=== PATIENT | male | born 1955 | race Caucasian/White ===

== ENCOUNTER 2017-09-27 10:05 | Observation (INO) | payer OTHER ==
[~2017-09-27] VITALS: Ht 182.9 cm; Wt 100.7 kg
[2017-09-27] VITALS (8 sets, daily range): BP systolic 110–133; BP diastolic 63–74
--- NOTE | ~2017-09-27 | H ---
[address] [address] HISTORY AND PHYSICAL Name: SOLO HOYT Room: [address] Roberto Simon#: [id number] Admission: 09/27/17 Attend Phys: Talib lBackwell MD, Discharge: 09/28/17 Date of : 51 Report #: [id number] THIS REPORT FOR: //name// Please refer to the History and Physical performed in the physician's office. By: [id number] Records Staff KATHIE /BLAIR
[~2017-09-27 10:05] MED LIST: ASPIR 8181 MG PO; ATORVASTATIN CA40 MG PO; EFFIENT10 MG PO; LISINOPRIL2.5 MG PO; LOPRESSOR25 PO; NICOTINE TRANSD14 M1 TRANSDERM; NICOTINE TRANSD21 M1; NITROGLYCERIN0.4 MG SUBLING; ZOCOR20 MG PO
[2017-09-27 11:31] LABS: HEMATOCRIT 42.5 % (42.0-52.0); HEMOGLOBIN 14.2 gm/dL (14.0-18.0); MCH 29.7 pg (26.0-34.0); MCHC 33.4 g/dL (28.0-37.0); MCV 88.9 fL (80.0-100.0); MPV 7.8 fl. (7.2-11.1); RBC 4.78 mil/uL (4.50-6.00); RDW-CV 13.7 % (10.5-14.5); WBC 7.7 thou/uL (4.0-11.0)
[2017-09-27 11:41] LABS: ANION GAP 8 mmol/L (7-16); BUN 22 mg/dL (7-18); CALCIUM 8.7 mg/dL (8.5-10.1); CHLORIDE 107 mmol/L (98-107); CO2 26 mmol/L (21-32); GLUCOSE 96 mg/dL (70-99); POTASSIUM 4.7 mmol/L (3.5-5.1); SODIUM 141 mmol/L (136-145)
[2017-09-27 11:42] LABS: APTT 26.3 Seconds (25.0-31.3); PROTIME 10.1 Seconds (9.20-11.50)
[2017-09-27 11:45] LABS: ALBUMIN 3.7 g/dL (3.4-5.0); ALKALINE PHOSPHATASE 85 U/L (46-116); CHOLESTEROL 128 mg/dL (<200); HDL CHOLESTEROL 44 mg/dL (>40); LDL CHOLESTEROL 58 mg/dL (<100); SGOT 28 U/L (15-37); SGPT 65 U/L (30-65); TC:HDL 2.9 Ratio (Not establshd); TOTAL BILIRUBIN 0.4 mg/dL (<0.1-1.0); TOTAL PROTEIN 7.5 g/dL (6.4-8.2); TRIGLYCERIDE 133 mg/dL (<150); VLDL 27 mg/dL (<40)
[2017-09-27 11:46] LABS: SERUM ASSESSMENT Clear
--- NOTE | 2017-09-27 17:18 | EKG ---
[place] [address] ELECTROCARDIOGRAM REPORT Name: SOLO HOYT Room: [facility]#: [id number] Admission: 09/27/17 Attend Phys: Talib Blackwell MD, Discharge: Date of : 51 Report #: [id number] THIS REPORT FOR: //name// [facility] Test Date: 2017-09-27 Test Time: 11:33:08 Pat Name: SOLO HOYT Department: Room: Gender: M Gunner'S Mate M: : 1955 Requested By: Talib Blackwell Order Number: [id number] Reading MD: Miguelangel Hendricks Measurements Intervals [place] Rate: 53 P: 62 IA: 167 QRS: 53 QRSD: 89 T: 48 QT: 416 QTc: 391 Interpretive Statements Sinus rhythm Abnormal R-wave progression, early transition Minimal ST elevation, anterior leads Baseline wander in lead(s) V3,V4,V5 Compared to ECG 03/24/2016 08:55:23 ST (T wave) deviation now present Electronically Signed On 09-27-2017 17:18:38 YOUTH CARE SPECIALIST by Miguelangel Hendricks [email or web address] <ELECTRONICALLY SIGNED> By: Miguelangel Hendricks MD, FACC 09/27/17 1718 1133 1133 Miguelangel Hendricks MD, FAC /EPI
--- NOTE | 2017-09-27 18:00 | NUR ---
post heart cath report given patient to via bed at bedside r groin site d/i no hematoma patient wuithout c/o pain no void yet patient instructed on laying flat until 2244, need for void in urinal, and use of call light
[2017-09-27] MEDS ORDERED: FISH OIL 1,001000 M2 PO (19:59)
[2017-09-27] MEDS ORDERED: [UNRECOGNIZED DRUG - OTHER] PO (20:01)
[2017-09-28] VITALS: BP 141/70
[2017-09-28 04:00] VITALS: BP 146/73
--- NOTE | 2017-09-28 05:11 | NUR ---
PT A&O X4 CALM COOPERITVE. FLUIDS. RA. 1ST BBB ON THE MONTIOR. RIGHT GROIN SITE INTACT NO HEMATOMA OR BLEEDING NOTED. PT STAND BY ASSIST. VITALS WNL. FALL PRECAUTIONS IN PLACE. HOURLY ROUNDING FOR SAFETY.
[2017-09-28 05:36] LABS: HEMATOCRIT 38.8 % (42.0-52.0); HEMOGLOBIN 13.1 gm/dL (14.0-18.0); MCH 30.1 pg (26.0-34.0); MCHC 33.9 g/dL (28.0-37.0); MCV 88.8 fL (80.0-100.0); MPV 7.8 fl. (7.2-11.1); RBC 4.36 mil/uL (4.50-6.00); RDW-CV 13.9 % (10.5-14.5); WBC 8.7 thou/uL (4.0-11.0)
[2017-09-28 05:58] LABS: ANION GAP 6 mmol/L (7-16); BUN 20 mg/dL (7-18); CALCIUM 7.8 mg/dL (8.5-10.1); CHLORIDE 108 mmol/L (98-107); CO2 25 mmol/L (21-32); GLUCOSE 117 mg/dL (70-99); POTASSIUM 4.3 mmol/L (3.5-5.1); SODIUM 139 mmol/L (136-145); TROPONIN-I LEVEL <0.06 ng/mL (<0.06)
--- NOTE | 2017-09-28 07:20 | NUR ---
CHANGE OF SHIFT, BEDSIDE REPORT GIVEN ASSUMED PATIENT CARE PATIENT SEEN AT BEDSIDE, ASLEEP
[2017-09-28 08:00] VITALS: BP 121/63
[2017-09-28 09:45] VITALS: BP 121/63
--- NOTE | 2017-09-28 10:50 | D ---
[address] [address] DISCHARGE SUMMARY Name: EVELINASOLO LEE Room: [address] IN M.R.#: [id number] Admission: 09/27/17 Attend Phys: Talib Blackwell MD, Discharge: Date of : 51 Report #: [id number] THIS REPORT FOR: //name// CC: Talib Salazar Swetha DATE OF SERVICE: 09/28/2017 FINAL DISCHARGE DIAGNOSES: 1. Unstable angina. 2. Coronary artery disease, status post prior stenting of the ramus intermedius and more recent percutaneous coronary intervention to the mid left anterior descending on 09/27/2017. 3. Hypertension. 4. Hyperlipoproteinemia. 5. Exogenous obesity. 6. Dyspnea on exertion. PROCEDURES: On 09/27/2017 - left heart catheterization, left ventriculography, selective coronary arteriography and percutaneous coronary intervention with deployment of drug-eluting stent at the site of 80% focal mid LAD stenosis with angioplasty within a previously stented proximal LAD site. HOSPITAL COURSE: The patient is a very pleasant 62-year-old male with a history of known coronary artery disease, status post stenting of the ramus intermedius in 12/2015. He underwent percutaneous coronary intervention to the LAD and first diagonal in 08/2016 at the [facility]. He presented with marked dyspnea on exertion, typical with his prior ischemic syndrome. He underwent recatheterization in this context on 09/27/2017. That study revealed 80% focal mid LAD stenosis at the end of the previously deployed stent, with approximately 60% to 70% proximal in-stent restenosis of the LAD. I deployed one 2.75 x 12 mm Xience Alpine drug-eluting stent in the mid LAD at the site of focal-edged stenosis and post-dilated that with a 3.02, 22 atmospheres with 10% residual narrowing. I dilated the suboptimally expanded proximal LAD stent with a 3.0 x 12 mm NC Trek inflated to 22 atmospheres with 10% to 20% residual narrowing and FELIPE 3 flow of the distal vessel. The patient did well post-procedurally and there was good hemostasis at the femoral site of catheterization. LABORATORY DATA: On 09/28/2017 revealed sodium of 139, potassium 4.3, BUN 20 and creatinine 1.0. Hemoglobin 13.1, white blood cell count 8700 with 235,000 platelets. The patient ambulated in the hallways without difficulty, with good hemostasis at the right [place] [address] DISCHARGE SUMMARY Name: SOLO HOYT PORTIA Room: [address]#: [id number] Admission: 09/27/17 Attend Phys: Talib Blackwell MD, Discharge: Date of : 51 Report #: [id number] DISCHARGE MEDICATIONS: He was discharged to home on 09/28/2017 on the following medications: Aspirin 81 mg daily, atorvastatin 20 mg at bedtime, fish oil 1000 mg daily, lisinopril 2.5 mg daily, metoprolol tartrate 12.5 mg b.i.d., nicotine patch 14 mg 1 daily, prasugrel or Effient 10 mg daily with additional 30 mg given periprocedurally and Ranexa 500 mg b.i.d. as well as p.r.n. sublingual nitroglycerin if needed. The patient is scheduled to return to see me on 10/29/2017 at 1440 at the [facility] office. <ELECTRONICALLY SIGNED> By: Talib Blackwell MD, FACC 09/28/17 1050 0946 1011John Annelise Blackwell MD, FACC /nt
--- NOTE | 2017-09-28 11:30 | NUR ---
patient dcd to home all dc instructions given and acknowledged and signed copies given iv and heart monitor removed personal belongings returned patient escorted out ambulatory to [facility]
--- NOTE | 2017-09-28 20:18 | EKG ---
[place] [address] ELECTROCARDIOGRAM REPORT Name: HOYTSOLO Room: [address] IN M.R.#: [id number] Admission: 09/27/17 Attend Phys: Talib Blackwell MD, Discharge: 09/28/17 Date of : 51 Report #: [id number] THIS REPORT FOR: //name// [facility] Test Date: 2017-09-28 Test Time: 08:34:52 Pat Name: SOLO HOYT Department: Room: [facility] Gender: M Ict Business Development Manager: 25 : 1955 Requested By: Talib Blackwell Order Number: [id number] Reading MD: Miguelangel Hendricks Measurements Intervals [place] Rate: 49 P: 57 NE: 171 QRS: 60 QRSD: 88 T: 52 QT: 451 QTc: 408 Interpretive Statements Sinus bradycardia Minimal ST elevation, anterior leads Compared to ECG 09/27/2017 11:33:08 Sinus rhythm no longer present ST (T wave) deviation still present Electronically Signed On 09-28-2017 20:17:57 MONOMER PURIFICATION OPERATOR by Miguelangel Hendricks [email or web address] <ELECTRONICALLY SIGNED> By: Miguelangel Hendricks MD, [facility] 09/28/172016 Miguelangel Hendricks MD, [facility] /EPI
--- NOTE | 2017-11-09 14:57 | CARD ---
[address] [address] CARDIAC CATH REPORT Name: SOLO HOYT Room: [address] Roberto Simon#: [id number] Admission: 09/27/17 Attend Phys: Talib Blackwell MD, Discharge: 09/28/17 Date of : 51 Report #: [id number] THIS REPORT FOR: //name// ADDENDUM APPROVED REPORT Study performed: 09/27/2017 15:48:46 Patient Details Patient Status: Out-Patient Room #: The patient is a 62 year-old male Event Personnel Talib Blackwell Special Makeup Fx Artist Instructor, Corrine Edwards RN Master Hearth Technician, Diana Thomas RTR ScrubSai Anthony ARRT (R) Monitor, William Mena Monitor Procedures Performed Art Access - R femoral artery* JEANIE Place w/wo Plasty Single LAD 318132 Left Heart Cath w/LT VGram [id number] LHCLV , Right trans femoral approach Indication Unstable angina Risk Factors Hypercholesterolemia, Hypertension, Tobacco History () Previous Procedures/Diagnoses Previous PCI Admission/Lab Medications/Medications given during procedure Angiomax bolus and infusion Procedure Narrative The patient was brought electively to the Cardiac Catheterization Laboratory and was prepped and draped in a sterile manner. The right femoral was infiltrated with 2% Lidocaine subcutaneous anesthesia. A [place] 6 FR sheath was inserted into the right femoral artery. Coronary angiography was performed using coronary diagnostic catheters. The right coronary system was accessed and visualized with a Diagnostic catheter. The left coronary system was accessed and visualized with a Diagnostic catheter. The left ventricle was accessed and visualized with a Diagnostic catheter. Left ventricular/Aortic Valve gradient assessed via catheter pullback. Left ventriculogram was performed in RAMIREZ projection. [place] [address] CARDIAC CATH REPORT Name: EVELINASOLO LEE Room: [address]#: [id number] Admission: 09/27/17 Attend Phys: Talib Blackwell MD, Discharge: 09/28/17 Date of : 51 Report #: [id number] femoral angiogram was performed . Closure device was deployed with a Fr Angioseal STS 6Fr. The patient tolerated the procedure well and there were no complications associated with the procedure. There was no hematoma. Intraoperative Conscious Sedation Sedation start time: 1617 Case end Time: 1728 Fentanyl 25 mcg Versed 1 mg Dose: 1763 mGy Contrast Type and Amount: Visipaque 315 ml Diagnostic Cath Left Main 0% narrowing LAD 40-50% proximal LAD stenosis with 80% focal mid LAD stenosis at the end of the previously deployed stent. There is 40% narrowing at the end of a previously deployed stent in the first diagonal branch of the LAD Circumflex Nondominant vessel with 50% proximal narrowing Right Coronary 0% narrowing Ramus Widely patent proximal ramus intermedius stent with 0% narrowing Left Ventriculography The left ventricle is normal in size with normal contractility. The left ventricular ejection fraction is estimated to be 60%. Left ventricular wall motion abnormalities are not present. There is no mitral insufficiency. Hemodynamics The aortic pressure is 130/62 mmHg with a mean of 83 mmHg. The left ventricular pressure is 133/4 mmHg with a mean of mmHg. The left ventricular end diastolic pressure is 19 mmHg. PCI Technique Lesion Anticoagulation was achieved with Angiomax. Patient was preloaded with Angiomax IV 15 ml. Percutaneous coronary intervention was performed on the mid left anterior descending artery segment. The lesion stenosis prior to intervention was 80% with FELIPE 3 flow. A 6F XB LAD 3.5 Guide Catheter was used to engage the ostium. A IG: BMW 190cm Interventional Guidewire was used to cross the lesion. BALLOON DILATION A Balloon catheter Trek RX 2.5 X 12 was inserted and inflated up to 16.00atm for 18seconds. Additional Inflation: 16.00atm [place] [address] CARDIAC CATH REPORT Name: SOLO HOYT PORTIA Room: [address] [place]#: [id number] Admission: 09/27/17 Attend Phys: Talib Blackwell MD, Discharge: 09/28/17 Date of : 51 Report #: [id number] 14seconds. STENT DEPLOYMENT A drug-eluting stent Xience Alpine RX 2.75X12 was inserted and inflated up to 8.00atm for 10seconds. Additional Inflation: 14.00atm for 13seconds. Additional Inflation: 16.00atm for 11seconds. POST STENT DEPLOYMENT BALLOON DILATION A Balloon catheter NC Trek RX 2.75 X 8 was inserted and inflated up to 20.00atm for 12seconds. Additional Inflation: 22.00atm for 12seconds. NC Trek RX 3.0x12 inflated up to 18 monica for 16 seconds. And then inflated up to 22 monica for 11 seconds. Final angiography reveals 10 % stenosis with FELIPE 3 flow. Conclusion #1 significant coronary artery characterized by the following: A 40-50% proximal in-stent restenosis with 80% focal stenosis of the mid LAD at the end of the previously deployed stent; there was 40% narrowing of the first diagonal the end of the previously deployed stent, B 50% proximal circumflex was narrowing, this being a nondominant vessel, C dominant right coronary artery with 0% narrowing, D ramus intermedius with widely patent proximal stent #2 normal left ventricular size and systolic function, estimated ejection fraction being 60%, #3 normal left-sided hemodynamics study, #4 successful percutaneous coronary intervention with deployment of drug-eluting stent at site of 80% focal mid LAD stenosis with 10% residual narrowing probably stent deployment and FELIPE-3 flow to the distal vessel. Recommendations Aggressive Medical Therapy Weight Loss Reduction Program [place] [address] CARDIAC CATH REPORT Name: SOLO HOYT Room: [address] MAYNOR Simon#: [id number] Admission: 09/27/17 Attend Phys: Talib Blackwell MD, Discharge: 09/28/17 Date of : 51 Report #: [id number] Aspirin (any) Prasugrel <ELECTRONICALLY SIGNED> By: Talib Blackwell MD, FACC 11/09/17 1457 1457 1457Jojorge alberto Blackwell MD, FACC /INF
== END 2017-09-28 11:30 | disposition home or self-care (01) ==
LOC: M.CL 10:05 → M.TBA-ER 17:41 → M.2W 17:41
PROVIDERS: ADMIT Internal Medicine
DX: I25.110 Atherosclerotic heart disease of native coronary artery with unstable angina pectoris (principal); I10 Essential (primary) hypertension; E78.5 Hyperlipidemia, unspecified; E66.09 Other obesity due to excess calories; Z68.30 Body mass index [BMI] 30.0-30.9, adult; E78.00 Pure hypercholesterolemia, unspecified; Z87.891 Personal history of nicotine dependence

== ENCOUNTER → 2017-11-28 | Outpatient (CLI) | payer OTHER ==
[~2017-11-28] MED LIST changes: +FISH OIL 1,001000 M2 PO; +[UNRECOGNIZED DRUG - OTHER] PO
== END ==
LOC: M.RAD 11:16
DX: J98.4 Other disorders of lung (principal)

== ENCOUNTER → 2017-12-04 | Outpatient (CLI) | payer OTHER ==
--- NOTE | 2017-12-07 12:12 | PF ---
[facility] [address] [place] [address] PULMONARY FUNCTION REPORT Name: SOLO HOYT Room: [facility] Luis.#: [id number] Admission: 12/04/17 Attend Phys: Smith Lauren Discharge: Date of : 51 Report #: [id number] THIS REPORT FOR: //name// CC: Talib Blackwell MD [facility] Marie Barnes DO DATE OF SERVICE: 12/04/2017 ATTENDING PHYSICIAN: Marie Ronquillo M.D. Spirometry is within normal limits. No significant improvement after a single dose of inhaled bronchodilator. Post-bronchodilator studies reveal an FEV1 of 4.1, FVC of 4.3, ratio is 72%. FEV1 is 84% of predicted. FVC is 87% of predicted. Mid flow rates are normal. Lung volumes were within normal limits. TLC was 85% of predicted. Vital capacity is 84% of predicted. Diffusion is 99% of predicted. IMPRESSION: Normal ventilatory studies. <ELECTRONICALLY SIGNED> By: Frederick Shaffer MD 12/07/17 1212 1432 [id number] Shaffer MD /nt
== END ==
LOC: M.PUL 10:12
DX: R07.89 Other chest pain (principal); R06.02 Shortness of breath

== ENCOUNTER → 2017-12-06 | Outpatient (CLI) | payer OTHER | LOC: M.CT 08:40 | DX: R06.02 Shortness of breath (principal); R91.1 Solitary pulmonary nodule ==

== ENCOUNTER → 2018-02-14 | Outpatient (CLI) | payer OTHER | LOC: M.RAD 09:07 | DX: I10 Essential (primary) hypertension (principal); R93.8 Abnormal findings on diagnostic imaging of other specified body structures ==

== ENCOUNTER 2018-08-21 10:31 | Observation (INO) | payer OTHER ==
[2018-08-21] VITALS (8 sets, daily range): BP systolic 124–143; BP diastolic 65–82
[~2018-08-21] VITALS: Ht 182.9 cm; Wt 106.1 kg
--- NOTE | ~2018-08-21 | H ---
[address] [address] HISTORY AND PHYSICAL Name: SOLO HOYT Room: [address] Roberto Simon#: [id number] Admission: 08/21/18 Attend Phys: Talib Blackwell MD, Discharge: 08/22/18 Date of : 51 Report #: [id number] THIS REPORT FOR: //name// Please refer to the History and Physical performed in the physician's office. By: 1520Medical Records Staff KATHIE /BLAIR
[2018-08-21 11:17] LABS: HEMATOCRIT 42.2 % (42.0-52.0); HEMOGLOBIN 14.2 gm/dL (14.0-18.0); MCH 29.9 pg (26.0-34.0); MCHC 33.7 g/dL (28.0-37.0); MCV 88.7 fL (80.0-100.0); MPV 7.5 fl. (7.2-11.1); RBC 4.75 mil/uL (4.50-6.00); RDW-CV 13.8 % (10.5-14.5); WBC 6.9 thou/uL (4.0-11.0)
[2018-08-21 11:25] LABS: POTASSIUM 4.4 mmol/L (3.5-5.1)
[2018-08-21 11:28] LABS: APTT 25.1 Seconds (25.0-31.3); PROTIME 9.8 Seconds (9.20-11.50)
[2018-08-21 11:30] LABS: ALBUMIN 3.6 g/dL (3.4-5.0); TOTAL BILIRUBIN 0.5 mg/dL (<0.1-1.0); TOTAL PROTEIN 7.1 g/dL (6.4-8.2)
--- NOTE | 2018-08-21 18:48 | EKG ---
[place] [address] ELECTROCARDIOGRAM REPORT Name: EVELINASOLO Room: [address] M.R.#: [id number] Admission: 08/21/18 Attend Phys: Talib Blackwell MD, Discharge: Date of : 51 Report #: [id number] THIS REPORT FOR: //name// [facility] Test Date: 2018-08-21 Test Time: 10:48:19 Pat Name: SOLO HOYT Department: Room: [facility] Gender: M Powder Worker: : 1955 Requested By: Talib Blackwell Order Number: [id number] Juliet MD: Miguelangel Hendricks Measurements Intervals [place] Rate: 52 P: 40 MD: 161 QRS: 56 QRSD: 90 T: 44 QT: 416 QTc: 387 Interpretive Statements Sinus rhythm Compared to ECG 09/28/2017 08:34:52 Sinus bradycardia no longer present ST (T wave) deviation no longer present Electronically Signed On 08-21-2018 18:48:34 BOAT MECHANIC by Miguelangel Hendricks [email or web address] <ELECTRONICALLY SIGNED> By: Miguelangel Hendricks MD, [facility] 08/21/18 1848 1048 1048 Miguelangel Hendricks MD, [facility] /EPI
[2018-08-22] VITALS: BP 121/51
[2018-08-22 04:00] VITALS: BP 123/49
[2018-08-22 08:00] VITALS: BP 140/62
[2018-08-22 09:02] LABS: HEMATOCRIT 41.2 % (42.0-52.0); HEMOGLOBIN 13.9 gm/dL (14.0-18.0); MCH 30.5 pg (26.0-34.0); MCHC 33.9 g/dL (28.0-37.0); MCV 90.2 fL (80.0-100.0); MPV 7.6 fl. (7.2-11.1); RBC 4.56 mil/uL (4.50-6.00); RDW-CV 13.9 % (10.5-14.5); WBC 8.2 thou/uL (4.0-11.0)
[2018-08-22 09:11] LABS: ALBUMIN 3.4 g/dL (3.4-5.0); TOTAL BILIRUBIN 0.5 mg/dL (<0.1-1.0)
[2018-08-22 10:22] VITALS: BP 140/62
[2018-08-22 11:08] VITALS: BP 140/62
--- NOTE | 2018-08-22 11:12 | CARD ---
[address] [address] CARDIAC CATH REPORT Name: SOLO HOYT Room: [address] Roberto Simon#: [id number] Admission: 08/21/18 Attend Phys: Talib Blackwell MD, Discharge: Date of : 51 Report #: [id number] THIS REPORT FOR: //name// APPROVED REPORT Study performed: 08/21/2018 12:50:23 Patient Details Patient Status: Out-Patient Room #: The patient is a 62 year-old male Event Personnel Talib Blackwell Development Geologist, Brittanie Bello RN RN, Lorraine Singh RTR Monitor, Frederick Gibbs (Walt Maher Angela CLOTHING WORKER Monitor, William Mena Employment Specialist Procedures Performed Left Heart Cath w/or w/o Coronaries, JEANIE Place w/wo Plasty Single LAD, FFR Indication Unstable angina Risk Factors Hypercholesterolemia, Hypertension Previous Procedures/Diagnoses Previous PCI Admission/Lab Medications/Medications given during procedure Aspirin, Platelet Aff. Inhib., Angiomax bolus and infusion Procedure Narrative The patient was brought electively to the Cardiac Catheterization Laboratory and was prepped and draped in a sterile manner. The right femoral was infiltrated with 2% Lidocaine subcutaneous anesthesia. A [place] 6 FR sheath was inserted into the right femoral artery. Coronary angiography was performed using coronary diagnostic catheters. The right coronary system was accessed and visualized with a Diagnostic JR4 catheter. The left coronary system was accessed and visualized with a Diagnostic JL4 catheter. The left ventricle was accessed and visualized with a Diagnostic Straight Pig catheter. Left ventricular/Aortic Valve gradient assessed via catheter pullback. Left ventriculogram was performed in RAMIREZ projection. Pre-demployment femoral angiogram was performed . Closure [place] [address] CARDIAC CATH REPORT Name: SOLO HOYT PORTIA Room: [address]#: [id number] Admission: 08/21/18 Attend Phys: Talib Blackwell MD, Discharge: Date of : 51 Report #: [id number] 6 Fr Angioseal STS 6Fr. The patient tolerated the procedure well and there were no complications associated with the procedure. There was no hematoma. Intraoperative Conscious Sedation Sedation start time: 13:22 Case end Time: 14:37 Fentanyl 75 mcg Versed 3 mg Fluoro Time: 15.4 minutes Dose: DAP 662326 cGycm2 2286 mGy Contrast Type and Amount: Visipaque 465 ml Diagnostic Cath Left Main 0% narrowing LAD 70% proximal LAD in-stent restenosis with 80% narrowing of the midportion of the LAD at the takeoff of a second diagonal Circumflex 50% ostial narrowing of the small nondominant vessel Right Coronary 0% narrowing Ramus Widely patent proximal stent IVUS Intravascular Ultrasound was performed on the mid left anterior descending artery segment vessel. A Guide Catheter was used to engage the 6F XB LAD 3.5 ostium. A IG: BMW 190cm was used. IVUS Findings FFR was performed on the sequential LAD lesions with a minimum value 0.85 after adenosine provocation Hemodynamics The aortic pressure is 139/69 mmHg with a mean of 94 mmHg. The left ventricular pressure is 132/3 mmHg with a mean of mmHg. The left ventricular end diastolic pressure is 13 mmHg. There was no gradient across the aortic valve upon pullback. PCI Technique Lesion Anticoagulation was achieved with Angiomax. Patient was preloaded with Angiomax IV 16 mg per kg. Percutaneous coronary intervention was performed on the mid left anterior descending artery segment. The lesion stenosis prior to intervention was 80% with FELIPE 0 flow. A 6F XB LAD 3.5 Guide Catheter was used to engage the ostium. A Xience Martha 2.44U01ve Interventional Guidewire was used [place] [address] CARDIAC CATH REPORT Name: SOLO HOYT PORTIA Room: [address]#: [id number] Admission: 08/21/18 Attend Phys: Talib Blackwell MD, Discharge: Date of : 51 Report #: [id number] STENT DEPLOYMENT A drug-eluting stent Xience Martha 2.14Q11xi was inserted and inflated up to 10.00atm for 10seconds. Final angiography reveals 0 % stenosis with FELIPE 3 flow. PCI Technique Lesion Percutaneous coronary intervention was performed on the mid left anterior descending artery segment. A 6F XB LAD 3.5 Guide Catheter was used to engage the ostium. A IG: BMW 190cm Interventional Guidewire was used to cross the lesion. BALLOON DILATION A Balloon catheter FFR was performed on the sequential LAD lesions with a minimum value 0.85 after adenosine provocation was inserted and inflated up to monica for seconds. STENT DEPLOYMENT A drug-eluting stent Xience Martha 2.97C04ga was inserted and inflated up to 9.00atm for 11seconds. Additional Inflation: 11.00atm for 8seconds. PCI Technique Lesion 2 Percutaneous coronary intervention was performed on the proximal left anterior descending artery segment. The lesion stenosis prior to intervention was 70% with FELIPE 3 flow. A 6F XB LAD 3.5 Guide Catheter was used to engage the ostium. A IG: BMW 190cm Interventional Guidewire was used to cross the lesion. Balloon Dilation A Balloon catheter NC Trek RX 2.75 X 12 was inserted and inflated up to 10atm for 10seconds. Additional Inflation: 22atm for 15seconds. Final angiography reveals 10 % stenosis with FELIPE 3 flow. PCI Technique Lesion Percutaneous coronary intervention was performed on the proximal left anterior descending artery segment. A 6F XB LAD 3.5 Guide Catheter was used to engage the ostium. A IG: BMW 190cm Interventional Guidewire was used to cross the lesion. BALLOON DILATION A Balloon catheter NC Trek RX 3.0 X 12 was inserted and inflated up to 18atm for 11seconds. Additional Inflation: 18atm for 12seconds. [address] [address] CARDIAC CATH REPORT Name: SOLO HOYT Room: [address] Roberto M.R.#: [id number] Admission: 08/21/18 Attend Phys: Talib Blackwell MD, Discharge: Date of : 51 Report #: [id number] Conclusion #1 significant coronary artery disease characterized by the following: A 70% proximal LAD in-stent restenosis with 80% narrowing of the mid LAD at the takeoff of the second diagonal B 50% ostial narrowing of the small nondominant circumflex C widely patent ramus intermedius stent D normal right coronary artery #2 normal left ventricular systolic function, estimate ejection fraction being 65% #3 normal left-sided hemodynamics study #4 fractional flow reserve performed on sequential LAD lesions with a minimum value 0.85 suggesting borderline significance #5 successful percutaneous coronary intervention with deployment of drug-eluting stent at site of 80% mid LAD stenosis with 0% residual narrowing #6 successful percutaneous transluminal coronary angioplasty at the site of 70% proximal LAD in stent re- stenosis with 10% residual narrowing and FELIPE-3 flow the distal vessel. Recommendations Cardiac Risk Reduction Program Aggressive Medical Therapy Medications Administered Aspirin (any) Prasugrel Diagnostic Cath Approved by: Talib Blackwell MD Date/Time: 08/22/2018 11:10:22 <ELECTRONICALLY SIGNED> By: Talib Blackwell MD, [facility] 08/22/18 1112 11 111Talib Blackwell MD, FAC /INF
--- NOTE | 2018-08-22 16:43 | EKG ---
[place] [address] ELECTROCARDIOGRAM REPORT Name: SOLO HOYT Room: [address]R.#: [id number] Admission: 08/21/18 Attend Phys: Talib Blackwell MD, Discharge: 08/22/18 Date of : 51 Report #: [id number] THIS REPORT FOR: //name// [facility] Test Date: 2018-08-22 Test Time: 11:06:51 Pat Name: SOLO HOYT Department: Room: [address] Gender: M Sat Act Instructor: : 1955 Requested By: Talib Blackwell Order Number: [id number] Juliet MD: Talib Blackwell Measurements Intervals [place] Rate: 58 P: 59 GA: 165 QRS: 55 QRSD: 92 T: 45 QT: 407 QTc: 400 Interpretive Statements Sinus rhythm Baseline wander in lead(s) V6 Compared to ECG 08/21/2018 10:48:19 No significant changes Electronically Signed On 08-22-2018 16:42:56 DEPARTMENT HELPER by Talib Blackwell [email or web address] <ELECTRONICALLY SIGNED> By: Talib Blackwell MD, [facility] 08/22/18 1642 1106 1106 Talib Blackwell MD, [facility] /EPI
--- NOTE | 2018-08-22 16:58 | D ---
[address] [address] DISCHARGE SUMMARY Name: HOYTSOLO PORTIA Room: [address] Roberto Simon#: [id number] Admission: 08/21/18 Attend Phys: Talib Blackwell MD, Discharge: 08/22/18 Date of : 51 Report #: [id number] THIS REPORT FOR: //name// CC: Talib Barnes DATE OF SERVICE: 08/22/2018 FINAL DISCHARGE DIAGNOSES: 1. Unstable angina. 2. Coronary artery disease. 3. Status post percutaneous coronary intervention to the left anterior descending. 4. Hypertension. 5. Hyperlipidemia. 6. Exogenous obesity. PROCEDURES: On 08/21/2018 -- left heart catheterization, left ventriculography, selective coronary arteriography, fractional flow reserve calculated pertinent to the LAD and percutaneous coronary intervention to the proximal and mid LAD. HOSPITAL COURSE: The patient is a very pleasant 62-year-old male with a history of complex coronary artery disease, status post multiple prior percutaneous coronary interventions. Recently, he has noted recrudescence of chest pain similar to his prior angina with moderate activity with an increase in frequency and severity of episodes. He has underlying hypertension and hyperlipidemia. In that context, I performed a catheterization on 08/21/2018. That study revealed moderate proximal and mid LAD stenosis estimated at 70% and 80% respectively. FFR was performed on the sequential lesions with a minimum value of 0.85, suggesting borderline significance. Given the clinical scenario with recrudescence of angina, increased frequency and severity of episodes, I elected to intervene on the LAD lesions, deploying 2 drug-eluting stents in the mid to distal LAD and dilating the area of advanced restenosis in the proximal LAD with 0% mid to distal and 10% proximal residual narrowings and FELIPE 3 flow of the distal vessel. The patient did well post-procedurally with good hemostasis at the femoral site of catheterization. Laboratory on 08/22/2018 revealed sodium 141, potassium 4.0, BUN 14, creatinine 1.0. [place] [address] DISCHARGE SUMMARY Name: SOLO HOYT Room: [address] Roberto Simon#: [id number] Admission: 08/21/18 Attend Phys: Talib Blackwell MD, Discharge: 08/22/18 Date of : 51 Report #: [id number] He ambulated in the hallways without difficulty. The patient was discharged home on the following medications: Aspirin 81 mg daily, atorvastatin 20 mg at bedtime, fish oil 1000 mg daily, lisinopril 2.5 mg daily, metoprolol tartrate 12.5 mg b.i.d., prasugrel 10 mg daily with 30 mg edmond-procedural dose, and p.r.n. sublingual nitroglycerin. The patient is scheduled to return to see me on 10/23/2018 at 1400 hours at [facility]. Thus, the patient is discharged to home in stable condition on the aforementioned medications with followup as iterated above. <ELECTRONICALLY SIGNED> By: Talib Blackwell MD, FACC 08/22/18 1658 1608 1630Talib Blackwell MD, FACC /nt
== END 2018-08-22 11:45 | disposition home or self-care (01) ==
LOC: M.CL 10:31 → M.TBA-CV 17:09 → M.2W 17:56
PROVIDERS: ADMIT Internal Medicine
DX: I25.110 Atherosclerotic heart disease of native coronary artery with unstable angina pectoris (principal); E78.5 Hyperlipidemia, unspecified; I10 Essential (primary) hypertension; E66.09 Other obesity due to excess calories; Z95.5 Presence of coronary angioplasty implant and graft; Z87.891 Personal history of nicotine dependence; Z68.31 Body mass index [BMI] 31.0-31.9, adult

== ENCOUNTER 2019-06-02 07:24 | Observation (INO) | payer OTHER, MEDICARE ==
[2019-06-02] VITALS (16 sets, daily range): BP systolic 102–148; BP diastolic 49–74
[~2019-06-02] VITALS: Ht 182.9 cm; Wt 99.3 kg
[~2019-06-02 07:24] MED LIST changes: -ATORVASTATIN CA40 MG PO; +LIPITOR40 MG PO
[2019-06-02 08:11] LABS: HEMATOCRIT 42.1 % (42.0-52.0); HEMOGLOBIN 14.4 gm/dL (14.0-18.0); MCH 30.1 pg (26.0-34.0); MCHC 34.1 g/dL (28.0-37.0); MCV 88.3 fL (80.0-100.0); RBC 4.76 mil/uL (4.50-6.00); RDW-CV 13.4 % (10.5-14.5); WBC 7.3 thou/uL (4.0-11.0)
[2019-06-02 08:25] LABS: PROTIME 9.9 Seconds (9.20-11.50)
[2019-06-02 08:25] LABS: ANION GAP 10 mmol/L (7-16); BUN 19 mg/dL (7-18); CALCIUM 8.7 mg/dL (8.5-10.1); CHLORIDE 105 mmol/L (98-107); CO2 28 mmol/L (21-32); GLUCOSE 103 mg/dL (70-99); POTASSIUM 4.4 mmol/L (3.5-5.1); SODIUM 143 mmol/L (136-145)
[2019-06-02 08:30] LABS: ALBUMIN 3.7 g/dL (3.4-5.0); ALKALINE PHOSPHATASE 83 U/L (46-116); CHOLESTEROL 183 mg/dL (<200); HDL CHOLESTEROL 47 mg/dL (>40); LDL CHOLESTEROL 58 mg/dL (<100); SERUM ASSESSMENT Clear; SGOT 24 U/L (15-37); SGPT 56 U/L (30-65); TC:HDL 3.9 Ratio (Not establshd); TOTAL BILIRUBIN 0.5 mg/dL (<0.1-1.0); TOTAL PROTEIN 7.4 g/dL (6.4-8.2); TRIGLYCERIDE 393 mg/dL (<150); VLDL 79 mg/dL (<40)
[2019-06-03] VITALS: BP 114/62
[2019-06-03 04:00] VITALS: BP 102/63
[2019-06-03 05:36] LABS: HEMATOCRIT 39.4 % (42.0-52.0); HEMOGLOBIN 13.2 gm/dL (14.0-18.0); MCH 29.7 pg (26.0-34.0); MCHC 33.5 g/dL (28.0-37.0); MCV 88.7 fL (80.0-100.0); MPV 7.5 fl. (7.2-11.1); RBC 4.44 mil/uL (4.50-6.00); RDW-CV 13.5 % (10.5-14.5)
[2019-06-03 06:12] LABS: CALCIUM 8.4 mg/dL (8.5-10.1); POTASSIUM 4.3 mmol/L (3.5-5.1); TOTAL BILIRUBIN 0.2 mg/dL (<0.1-1.0); TOTAL PROTEIN 6.5 g/dL (6.4-8.2)
[2019-06-03 06:26] LABS: TROPONIN-I LEVEL 0.16 ng/mL (<0.06)
--- NOTE | 2019-06-03 08:42 | EKG ---
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1955 Requested By: Talib Blackwell Order Number: [id number] Juliet MD: Miguelangel Hendricks Measurements Intervals [place] Rate: 50 P: 0 [place]: 313 QRS: 59 QRSD: 91 T: 54 QT: 446 QTc: 407 Interpretive Statements Sinus rhythm Minimal ST elevation, anterior leads, consider early repolarization Compared to ECG 08/22/2018 11:06:51 ST (T wave) deviation now present Electronically Signed On 06-03-2019 8:42:21 CDT by Miguelangel Hendricks [email or web address] <ELECTRONICALLY SIGNED> By: Miguelangel Hendricks MD, FACC 06/03/19 0842 9 9 Miguelangel Hendricks MD, [facility] /EPI
--- NOTE | 2019-06-03 08:44 | EKG ---
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: : 1955 Requested By: Talib Blackwell Order Number: [id number] Juliet MD: Miguelangel Hendricks Measurements Intervals [place] Rate: 53 P: 64 DC: 176 QRS: 62 QRSD: 90 T: 58 QT: 445 QTc: 418 Interpretive Statements Sinus rhythm Minimal ST elevation, anterior leads Baseline wander in lead(s) II Compared to ECG 08/22/2018 11:06:51 ST (T wave) deviation now present Electronically Signed On 06-03-2019 8:44:03 CDT by Miguelangel Hendricks [email or web address] <ELECTRONICALLY SIGNED> By: Miguelangel Hendricks MD, FACC 06/03/19 0844 1322 1322 Miguelangel Hendricks MD, FACC /EPI
--- NOTE | 2019-06-03 08:48 | EKG ---
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 : 1955 Requested By: Talib Blackwell Order Number: [id number] [place] MD: Miguelangel Hendricks Measurements Intervals [place] Rate: 59 P: 65 [place]: 161 QRS: 59 QRSD: 91 T: 50 QT: 424 QTc: 420 Interpretive Statements Sinus rhythm Compared to ECG 06/02/2019 08:20:46 ST (T wave) deviation no longer present Electronically Signed On 06-03-2019 8:47:50 CDT by Miguelangel Hendricks [email or web address] <ELECTRONICALLY SIGNED> By: Miguelangel Hendricks MD, [facility] 06/03/19 0847 0757 075 Miguelangel Hendricks MD, FACC /EPI
[2019-06-03 09:01] VITALS: BP 150/74
[2019-06-03 11:07] VITALS: BP 126/66
--- NOTE | 2019-06-03 13:30 | CARD ---
[address] [address] CARDIAC CATH REPORT Name: SOLO HOYT Room: [address] IN M.R.#: [id number] Admission: 06/02/19 Attend Phys: Talib Blackewll MD, Discharge: 06/03/19 Date of : 51 Report #: [id number] THIS REPORT FOR: //name// APPROVED REPORT Study performed: 06/02/2019 08:38:55 Patient Details The patient is a 63 year-old male Event Personnel Talib Blackwell Group Exercise Class Instructor, Viola Spangler RN Auto Radiator Mechanic, Dona Grimaldo RTR Scrub, Angelo Maria TRAFFIC RATE CLERK Scrub, William Mena Monitor, Talib Blackwell Communicable Disease Specialist Procedures Performed Left heart catheterization left ventriculography selective coronary artery (percutaneous coronary intervention to the LAD Indication Unstable angina Risk Factors Hypercholesterolemia, Hypertension Admission/Lab Medications/Medications given during procedure Angiomax bolus and infusion Procedure Narrative The patient was brought electively to the Cardiac Catheterization Laboratory and was prepped and draped in a sterile manner. The right femoral was infiltrated with 2% Lidocaine subcutaneous anesthesia. A Chappell 6 FR sheath was inserted into the . Coronary angiography was performed using coronary diagnostic catheters. The right coronary system was accessed and visualized with a Diagnostic - JR4 catheter. The left coronary system was accessed and visualized with a Diagnostic - JL4 catheter. The left ventricle was accessed and visualized with a Diagnostic - ANG PIG catheter. Left ventricular/Aortic Valve gradient assessed via catheter pullback. Left ventriculogram was performed in RAMIREZ projection. Pre-demployment femoral angiogram was performed . Closure device was deployed with a Fr Angioseal STS 6Fr. The patient tolerated the procedure well and there were no complications associated with the procedure. [place] [address] CARDIAC CATH REPORT Name: EVELINASOLO LEE Room: [address]#: [id number] Admission: 06/02/19 Attend Phys: Talib Blcakwell MD, Discharge: 06/03/19 Date of : 51 Report #: [id number] Intraoperative Conscious Sedation Sedation start time: 948 Case end Time: 1110 Fentanyl 50 mcg Versed 2 mg Fluoro Time: 20.0 minutes Dose: DAP 414358 cGycm2 2714 mGy Contrast Type and Amount: Visipaque 450 ml Coronary Angiography The patient's coronary anatomy is right dominant. Diagnostic Cath Left Main 0% narrowing LAD 75% mid with 80% distal LAD stenosis Circumflex 40 Percent ostial narrowing Right Coronary Dominant vessel with 30% proximal and mid vessel narrowing Left Ventriculography The left ventricle is normal in size with normal contractility. The left ventricular ejection fraction is estimated to be 65%. Left ventricular wall motion abnormalities are not present. There is no mitral insufficiency. Hemodynamics The aortic pressure is 145/68 mmHg with a mean of 98 mmHg. The left ventricular pressure is 139/1 mmHg with a mean of mmHg. The left ventricular end diastolic pressure is 23 mmHg. There was no gradient across the aortic valve upon pullback. PCI Technique Lesion Anticoagulation was achieved with Angiomax. Patient was preloaded with Angiomax IV 15 ml. Percutaneous coronary intervention was performed on the distal left anterior descending artery segment. The lesion stenosis prior to intervention was 80% with FELIPE 3 flow. A 6F XB LAD 3.5 Guide Catheter was used to engage the ostium. A IG: BMW 190cm Interventional Guidewire was used to cross the lesion. BALLOON DILATION A Balloon catheter Trek RX 2.25 X 12 was inserted and inflated up to 8.00atm for 14seconds. Additional Inflation: 12.00atm for 21seconds. Additional Inflation: 14.00atm for 13seconds. [place] [address] CARDIAC CATH REPORT Name: SOLO HOYT PORTIA Room: [address]#: [id number] Admission: 06/02/19 Attend Phys: Talib Blackwell MD, Discharge: 06/03/19 Date of : 51 Report #: [id number] A stent Xience Martha 2.28B95uh was inserted and inflated up to 12.00atm for 19seconds. Additional Inflation: 14.00atm for 10seconds. Final angiography reveals 0 % stenosis with FELIPE 3 flow. BALLOON DILATION A Balloon catheter was inserted and inflated up to 16.00atm for 19seconds. Additional Inflation: 18.00atm for 11seconds. STENT DEPLOYMENT A stent Xience Martha 2.5X8mm was inserted and inflated up to 12.00atm for 15seconds. Additional Inflation: 14.00atm for 12seconds. POST STENT DEPLOYMENT BALLOON DILATION A Balloon catheter AngioSculpt PTCA 2.0X10mm was inserted and inflated up to 16.00atm for 22seconds. Additional Inflation: 18.00atm for 24seconds. Final angiography reveals 5 % stenosis with FELIPE 3 flow. Conclusion #1 significant coronary artery disease characterized by the following: A 75% mid with 80% distal LAD stenosis B 40% ostial narrowing of the nondominant circumflex C large dominant right coronary artery with 30% proximal and mid vessel narrowing #2 normal left ventricular systolic function, estimate ejection fraction being 65% #3 moderate elevation of left ventricular end-diastolic pressure #4 successful percutaneous coronary intervention with deployment of drug-eluting stents at the sites of 75% mid and 80% distal LAD stenosis with 0% residual narrowings and FELIPE-3 flow to the distal vessel Recommendations Cardiac [place] [address] CARDIAC CATH REPORT Name: EVELINASOLO LEE Room: [address] IN M.R.#: [id number] Admission: 06/02/19 Attend Phys: Talib Blackwell MD, Discharge: 06/03/19 Date of : 51 Report #: [id number] Aggressive Medical Therapy Medications Administered Aspirin (any) Prasugrel Diagnostic Cath Approved by: Talib Blackwell MD Date/Time: 06/03/2019 13:28:30 <ELECTRONICALLY SIGNED> By: Talib Blackwell MD, FACC 06/03/19 1330 29 Talib Blackwell MD, FACC /INF
--- NOTE | 2019-06-04 16:46 | D ---
[address] [address] DISCHARGE SUMMARY Name: SOLO HOYT PORTIA Room: [address] Roberto Simon#: [id number] Admission: 06/02/19 Attend Phys: Talib Blackwell MD, Discharge: 06/03/19 Date of : 51 Report #: [id number] THIS REPORT FOR: //name// CC: Talib Barnes DATE OF SERVICE: 06/03/2019 FINAL DISCHARGE DIAGNOSES: 1. Unstable angina. 2. Coronary artery disease. 3. Hypertension. 4. Hyperlipidemia. 5. Exogenous obesity. 6. Status post percutaneous coronary intervention to the left anterior descending on 06/02/2019. HOSPITAL COURSE: The patient is a very pleasant 63-year-old male with aggressive coronary artery disease and risk factors of hypertension, hyperlipidemia and exogenous obesity. He presented to the office with increasing episodes of chest discomfort and dyspnea, suggesting angina following an unstable pattern. In that context, he underwent cardiac catheterization on 06/02/2019 which revealed 75% mid and 80% distal LAD stenoses. I deployed two drug-eluting stents, one in the mid and one distal LAD with 0% residual narrowing and FELIPE-3 flow of the distal vessel. There were no significant stenoses of the right coronary artery or nondominant circumflex. Troponin lucie inconsequentially to 0.16. There was good hemostasis at the right femoral site of catheterization. LABORATORY DATA: On 06/03/2019 revealed a sodium of 140, potassium 4.3, BUN 16, creatinine 1.0, glucose 109. Hemoglobin 13.2, white blood cell count 8000, platelets 238,000. The patient ambulated in the hallways without difficulty. DISCHARGE MEDICATIONS: He was discharged to home on the following medications: Aspirin 81 mg daily, atorvastatin 20 mg at bedtime, fish oil 1000 mg daily, lisinopril 2.5 mg daily, metoprolol tartrate 12.5 mg b.i.d., prasugrel or Effient 10 mg daily, p.r.n. sublingual nitroglycerin 0.4 mg as needed. I will plan to see the patient in followup on 07/03/2019 at 1440 [place] [address] DISCHARGE SUMMARY Name: SOLO HOYT PORTIA [address]: [address]#: [id number] Admission: 06/02/19 Attend Phys: Talib Blackwell MD, Discharge: 06/03/19 Date of : 51 Report #: [id number] Therefore, the patient is discharged to home in stable condition on the aforementioned medications with followup as iterated above. <ELECTRONICALLY SIGNED> By: Talib Blackwell MD, [facility] 06/04/19 1646 1649 [id number] alberto Blackwell MD, FACC /nt
== END 2019-06-03 12:35 | disposition home or self-care (01) ==
LOC: M.CL 07:24 → M.2W 11:40 → M.TBA-CV 11:40 → M.2W 11:40
PROVIDERS: ADMIT Internal Medicine
DX: I25.110 Atherosclerotic heart disease of native coronary artery with unstable angina pectoris (principal); I10 Essential (primary) hypertension; I25.2 Old myocardial infarction; E66.09 Other obesity due to excess calories; Z68.29 Body mass index [BMI] 29.0-29.9, adult; Z79.82 Long term (current) use of aspirin; Z79.899 Other long term (current) drug therapy; Z87.891 Personal history of nicotine dependence

== ENCOUNTER 2019-09-29 07:47 | Observation (INO) | payer OTHER, MEDICARE ==
[2019-09-29] VITALS (13 sets, daily range): BP systolic 124–161; BP diastolic 61–86
[~2019-09-29] VITALS: Ht 182.9 cm; Wt 110.1 kg
--- NOTE | ~2019-09-29 | H ---
[address] [address] HISTORY AND PHYSICAL Name: SOLO HOYT Room: [address] Roberto Simon#: [id number] Admission: 09/29/19 Attend Phys: Talib Blackwell MD, Discharge: 09/30/19 Date of : 51 Report #: [id number] THIS REPORT FOR: //name// cc: Kosta Barnes Vincent R. DO ~ THIS REPORT FOR: //name// Please refer to the History and Physical performed in the physician's office. By: [id number] Records Staff [facility] /BLAIR
[2019-09-29 08:29] LABS: HEMATOCRIT 40.8 % (42.0-52.0); HEMOGLOBIN 14.1 gm/dL (14.0-18.0); MCH 30.2 pg (26.0-34.0); MCHC 34.6 g/dL (28.0-37.0); MCV 87.4 fL (80.0-100.0); MPV 7.2 fl. (7.2-11.1); RBC 4.67 mil/uL (4.50-6.00); WBC 7.8 thou/uL (4.0-11.0)
[2019-09-29 08:41] LABS: APTT 25.1 Seconds (25.0-31.3); INR 0.9; PROTIME 9.6 Seconds (9.20-11.50)
[2019-09-29 08:42] LABS: ANION GAP 7 mmol/L (7-16); BUN 19 mg/dL (7-18); CALCIUM 8.1 mg/dL (8.5-10.1); CHLORIDE 106 mmol/L (98-107); CHOLESTEROL 193 mg/dL (<200); CO2 28 mmol/L (21-32); GLUCOSE 109 mg/dL (70-99); HDL CHOLESTEROL 39 mg/dL (>40); POTASSIUM 4.5 mmol/L (3.5-5.1); SODIUM 141 mmol/L (136-145); TC:HDL 4.9 Ratio (Not establshd); TRIGLYCERIDE 452 mg/dL (<150); VLDL 90 mg/dL (<40)
[2019-09-29 08:43] LABS: SERUM ASSESSMENT Clear
--- NOTE | 2019-09-29 16:52 | EKG ---
[place] [address] ELECTROCARDIOGRAM REPORT Name: SOLO HOYT Room: [address] M.R.#: [id number] Admission: 09/29/19 Attend Phys: Johanna Luevano Discharge: Date of : 51 Date of Service: 09/29/19 0843 Report #: [id number] THIS REPORT FOR: //name// [facility] Test Date: 2019-09-29 Test Time: 08:43:16 Pat Name: SOLO HOYT Department: Room: 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 normal variant Compared to ECG 06/03/2019 07:57:15 No significant change Electronically Signed On 09-29-2019 16:51:04 RECRUITMENT ASSISTANT by Talib Blackwell [email or web address] <ELECTRONICALLY SIGNED> By: Talib Blackwell MD, [facility] 09/29/19 1651 0843 0843 Talib Blackwell MD, [facility] /EPI
--- NOTE | 2019-09-29 16:54 | EKG ---
[place] [address] ELECTROCARDIOGRAM REPORT Name: SOLO HOYT Room: [address] M.R.#: [id number] Admission: 09/29/19 Attend Phys: Johanna Luevano Discharge: Date of : 51 Date of Service: 09/29/19 1112 Report #: [id number] THIS REPORT FOR: //name// [facility] Test Date: 2019-09-29 Test Time: 11:12:01 Pat Name: SOLO HOYT Department: Room: [facility] Gender: M Rural Carrier: ALINE : 1955 Requested By: Talib Blackwell Order Number: [id number] Juliet MD: Talib Blackwell Measurements Intervals [place] Rate: 54 P: 64 [place]: 185 QRS: 65 QRSD: 88 T: 59 QT: 423 QTc: 401 Interpretive Statements Sinus rhythm Compared to ECG 06/03/2019 07:57:15 No significant changes Electronically Signed On 09-29-2019 16:53:27 FOUNTAIN PEN NIBS INSPECTOR by Talib Blackwell [email or web address] <ELECTRONICALLY SIGNED> By: Talib Blackwell MD, [facility] 09/29/19 1653 1112 111 Talib Blackwell MD, [facility] /EPI
[2019-09-30 00:38] VITALS: BP 108/58
[2019-09-30 04:00] VITALS: BP 132/48
[2019-09-30 04:56] LABS: HEMATOCRIT 37.3 % (42.0-52.0); HEMOGLOBIN 12.9 gm/dL (14.0-18.0); MCH 30.3 pg (26.0-34.0); MCHC 34.5 g/dL (28.0-37.0); MCV 87.7 fL (80.0-100.0); MPV 7.5 fl. (7.2-11.1); RBC 4.26 mil/uL (4.50-6.00); RDW-CV 13.7 % (10.5-14.5); WBC 6.9 thou/uL (4.0-11.0)
[2019-09-30 05:41] LABS: ALBUMIN 2.9 g/dL (3.4-5.0); CALCIUM 7.6 mg/dL (8.5-10.1); TOTAL BILIRUBIN 0.2 mg/dL (<0.1-1.0); TOTAL PROTEIN 6.2 g/dL (6.4-8.2); TROPONIN-I LEVEL 0.59 ng/mL (<0.06)
[2019-09-30 09:36] VITALS: BP 96/66
--- NOTE | 2019-09-30 11:46 | EKG ---
[place] [address] ELECTROCARDIOGRAM REPORT Name: SOLO HOYT Room: [address] M.R.#: [id number] Admission: 09/29/19 Attend Phys: Johanna Luevano Discharge: Date of : 51 Date of Service: 09/30/19 0457 Report #: [id number] THIS REPORT FOR: //name// [facility] Test Date: 2019-09-30 Test Time: 04:57:02 Pat Name: SOLO HOYT Department: Room: [facility] Gender: M Supervisor [employer]: [facility] : 1955 Requested By: Talib Blackwell Order Number: [id number] Juliet MD: Talib Blackwell Measurements Intervals [place] Rate: 51 P: 75 [place]: 165 QRS: 53 QRSD: 87 T: 44 QT: 456 QTc: 420 Interpretive Statements Sinus rhythm Borderline ST elevation, anterolateral leads, normal variant Compared to ECG 09/29/2019 11:12:0 no significant change Electronically Signed On 09-30-2019 11:45:10 TEXTILE BAG SEWER by Talib Blackwell [email or web address] <ELECTRONICALLY SIGNED> By: Talib Blackwell MD, [facility] 09/30/19 1145 0457 0457 Talib Blackwell MD, [facility] /EPI
--- NOTE | 2019-09-30 12:44 | CARD ---
[address] [address] CARDIAC CATH REPORT Name: SOLO HOYT Room: [address] Roberto Simon#: [id number] Admission: 09/29/19 Attend Phys: Talib Blackwell MD, Discharge: Date of : 51 Report #: [id number] THIS REPORT FOR: //name// cc: Kosta Barnes Vincent R. DO ~ THIS REPORT FOR: //name// APPROVED REPORT Study performed: 09/29/2019 09:11:24 Patient Details Patient Status: Out-Patient Room #: The patient is a 64 year-old male Event Personnel Talib Blackwell Injector Assembler, June Ribeiro RN Wastewater Supervisor, William Mena Scrub, Barbie Teran RTR Monitor Procedures Performed Art Access - R femoral artery, Left Heart Cath w/or w/o Coronaries , JEANIE Place w/wo Plasty Single LAD ,Hemostasis w/ Angioseal Indication Unstable angina (>72 hrs to = 7 days) Risk Factors Hypercholesterolemia, Hypertension Admission/Lab Medications/Medications given during procedure Oxygen Nasal cannula 2 l per min, Midazolam (Versed) IV 2 mg, Fentanyl IV 25 mcg, Lidocaine Subcut 18 ml, Angiomax IV bolus 16 ml, Angiomax Drip IV 38.5 ml per hr, Nitroglycerin IC 200 mcg, Effient PO 30 mg, Aspirin PO 81 mg Procedure Narrative The patient was brought electively to the Cardiac Catheterization Laboratory and was prepped and draped in a sterile manner. The right femoral groin was infiltrated with 2% Lidocaine subcutaneous anesthesia. A 6F Gibbs sheath was inserted into the right femoral artery. Coronary angiography was performed using coronary diagnostic catheters. The right coronary system was accessed and visualized with a 6F JR4 catheter. The left [place] [address] CARDIAC CATH REPORT Name: SOLO HOYT Room: [address] M.R.#: [id number] Admission: 09/29/19 Attend Phys: Talib Blackwell MD, Discharge: Date of : 51 Report #: [id number] visualized with a 6F XB LAD 3.5 catheter. The left ventricle was accessed and visualized with a 6F Pigtail catheter. Left ventricular/Aortic Valve gradient assessed via catheter pullback. Left ventriculogram was performed in RAMIREZ projection. Pre-demployment femoral angiogram was performed . Closure device was deployed with a 6 Fr Angioseal STS. The patient tolerated the procedure well and there were no complications associated with the procedure. There was no hematoma. Intraoperative Conscious Sedation Sedation start time: 10:07 Case end Time: 10:47 Fentanyl 25 mcg Versed 2 mg Fluoro Time: 7.4 minutes Dose: DAP 31176 cGycm2 1325 mGy Contrast Type and Amount: Visipaque 200 ml Diagnostic Cath Left Main 0% narrowing LAD 90% mid LAD in-stent restenosis with 70% narrowing just distal to this lesion Circumflex Small nondominant vessel with 60% ostial narrowing Right Coronary Large dominant vessel with 0% narrowing Left Ventriculography The left ventricle is normal in size with normal contractility. The left ventricular ejection fraction is estimated to be 65%. Left ventricular wall motion abnormalities are not present. There is no mitral insufficiency. Hemodynamics The aortic pressure is 156/60 mmHg with a mean of 103 mmHg. The left ventricular pressure is 156/5 mmHg with a mean of mmHg. The left ventricular end diastolic pressure is 17 mmHg. There was no gradient across the aortic valve upon pullback. PCI Technique Lesion Anticoagulation was achieved with Angiomax. Patient was preloaded with Angiomax IV bolus 16 ml. Percutaneous coronary intervention was performed on the mid left anterior descending artery segment. The lesion stenosis prior to intervention was 90% with FELIPE 3 flow. A 6F XB LAD 3.5 Guide Catheter was used to engage the ostium. A BMW 190cm Interventional Guidewire was used to cross the [place] [address] CARDIAC CATH REPORT Name: SOLO HOYT Room: [address] Roberto M.RStephane#: [id number] Admission: 09/29/19 Attend Phys: Talib Blackwell MD, Discharge: Date of : 51 Report #: [id number] A Balloon catheter NC Trek RX 2.25x12 was inserted and inflated up to 16.00atm for 10seconds. Additional Inflation: 14.00atm for 10seconds. Additional Inflation: 16.00atm for 8seconds. STENT DEPLOYMENT A drug-eluting stent Russell RX Stent 2.13V25xm was inserted and inflated up to 14.00atm for 10seconds. Additional Inflation: 16.00atm for 9seconds. Final angiography reveals 0 % stenosis with FELIPE 3 flow. Conclusion #1 significant coronary artery disease characterized by the following: A 90% mid LAD in-stent restenosis followed by 70% mid LAD narrowing B 60% narrowing of the ostial portion of the small nondominant circumflex C normal left main and right coronary arteries #2 normal left ventricular systolic function, estimatde ejection fraction being 65% #3 mild systemic systolic hypertension #4 successful percutaneous coronary intervention with deployment of a drug-eluting stent at the site of tandem 90 and 75% mid LAD stenoses with 0% residual narrowing and FELIPE-3 flow to the distal vessel Recommendations Cardiac Risk Reduction Program Aggressive Medical Therapy Medications Administered Aspirin ([place]) [place] [address] CARDIAC CATH REPORT Name: SOLO HOYT Room: [address] Roberto Simon#: [id number] Admission: 09/29/19 Attend Phys: Talib Blackwell MD, Discharge: Date of : 51 Report #: [id number] Diagnostic Cath Approved by: Talib Blackwell MD Date/Time: 09/30/2019 12:41:30 <ELECTRONICALLY SIGNED> By: Talib Blackwell MD, [facility] 09/30/19 1243 1243 1243Talib Blackwell MD, FAC /INF
--- NOTE | 2019-10-03 11:30 | D ---
[address] [address] DISCHARGE SUMMARY Name: SOLO HOYT Room: [address] Roberto Simon#: [id number] Admission: 09/29/19 Attend Phys: Talib Blackwell MD, Discharge: 09/30/19 Date of : 51 Report #: [id number] THIS REPORT FOR: //name// cc: Kosta Barnes Vincent R. DO THIS REPORT FOR: //name// CC: Talib Barnes DATE OF SERVICE: 09/30/2019 FINAL DISCHARGE DIAGNOSES: 1. Unstable angina. 2. Coronary artery disease. 3. Status post percutaneous coronary intervention to the left anterior descending. 4. Hypertension. 5. Hyperlipidemia. 6. Exogenous obesity. PROCEDURES: On 09/29/2019 -- left heart catheterization, left ventriculography, selective coronary arteriography and percutaneous coronary intervention with deployment of a drug-eluting stent in the mid LAD. The patient is a very pleasant 64-year-old male with hypertension, hypercholesterolemia, and aggressive coronary artery disease, status post multiple PCIs to the LAD. He presented with unstable angina to the office, in this context, I would recommend a cardiac catheterization, which was undertaken on 09/29/2019. That study revealed 90% mid LAD in-stent restenosis, followed by 70% narrowing just beyond this. I deployed one 2.25 x 18 mm [place] drug-eluting stent over this region, inflated to peak pressure of 16 atmospheres with 0% residual narrowing and FELIPE 3 flow of the distal vessel. Troponin lucie minimally to 0.59. Additional lab revealed sodium of 143, potassium of 4.0, BUN 16, creatinine 1.0. Hemoglobin 12.9, white blood cell count 6900 with 234,000 platelets. The patient ambulated in the hallways without difficulty and there was good hemostasis at the right femoral site of catheterization. DISCHARGE MEDICATIONS: He was discharged to home on the following medications: Aspirin 81 mg daily, atorvastatin 20 mg at bedtime, fish oil 1000 mg daily, lisinopril 2.5 mg daily, metoprolol tartrate 12.5 mg b.i.d., prasugrel 10 mg daily with 30 mg edmond[place] [address] DISCHARGE SUMMARY Name: SOLO HOYT PORTIA Room: [address] Roberto Simon#: [id number] Admission: 09/29/19 Attend Phys: Talib Blackwell MD, Discharge: 09/30/19 Date of : 51 Report #: [id number] He also has sublingual nitroglycerin. Therefore, the patient is discharged to home in stable condition on the aforementioned medications with followup as described above. <ELECTRONICALLY SIGNED> By: Talib Blackwell MD, [facility] 10/03/19 1130 0940 [id number] alberto Blackwell MD, FACC /nt
== END 2019-09-30 13:15 | disposition home or self-care (01) ==
LOC: M.CL 07:47 → M.TBA-CV 11:03 → M.2W 11:03
PROVIDERS: ADMIT Internal Medicine
DX: I25.110 Atherosclerotic heart disease of native coronary artery with unstable angina pectoris (principal); I10 Essential (primary) hypertension; E78.5 Hyperlipidemia, unspecified; E66.09 Other obesity due to excess calories

== ENCOUNTER 2020-05-03 07:35 | Observation (INO) | payer OTHER ==
[2020-05-03] VITALS (8 sets, daily range): BP systolic 139–180; BP diastolic 60–93
[~2020-05-03] VITALS: Ht 182.9 cm; Wt 104.3 kg
[2020-05-03 08:27] LABS: HEMATOCRIT 40.8 % (42.0-52.0); HEMOGLOBIN 14.3 gm/dL (14.0-18.0); MCH 30.7 pg (26.0-34.0); MCV 87.8 fL (80.0-100.0); MPV 7.1 fl. (7.2-11.1); RBC 4.64 mil/uL (4.50-6.00); RDW-CV 13.8 % (10.5-14.5)
[2020-05-03 08:33] LABS: ANION GAP 10 mmol/L (7-16); BUN 9 mg/dL (7-18); CALCIUM 8.3 mg/dL (8.5-10.1); CHLORIDE 105 mmol/L (98-107); CO2 25 mmol/L (21-32); GLUCOSE 103 mg/dL (70-99); POTASSIUM 4.2 mmol/L (3.5-5.1); SODIUM 140 mmol/L (136-145)
[2020-05-03 08:35] LABS: APTT 23.6 Seconds (25.0-31.3)
[2020-05-03 08:37] LABS: ALBUMIN 3.7 g/dL (3.4-5.0); ALKALINE PHOSPHATASE 75 U/L (46-116); CHOLESTEROL 185 mg/dL (<200); HDL CHOLESTEROL 40 mg/dL (>40); SGOT 27 U/L (15-37); SGPT 52 U/L (30-65); TC:HDL 4.6 Ratio (Not establshd); TOTAL BILIRUBIN 0.4 mg/dL (<0.1-1.0); TOTAL PROTEIN 7.2 g/dL (6.4-8.2); TRIGLYCERIDE 514 mg/dL (<150); VLDL 103 mg/dL (<40)
[2020-05-03 08:38] LABS: LDL CHOLESTEROL ND mg/dL (<100); SERUM ASSESSMENT Clear
--- NOTE | 2020-05-03 15:03 | EKG ---
[place] [address] ELECTROCARDIOGRAM REPORT Name: HOYTSOLO Room: [address] M.R.#: [id number] Admission: 05/03/20 Attend Phys: Johanna Luevano Discharge: Date of : 51 Date of Service: 05/03/20904 Report #: [id number] THIS REPORT FOR: //name// [facility] Test Date: 2020-05-03 Test Time: 09:05:43 Pat Name: SOLO HOYT Department: Room: [facility] Gender: M Field Sales Agent: : 1955 Requested By: Talib Blackwell Order Number: [id number] Reading MD: Talib Blackwell Measurements Intervals [place] Rate: 54 P: 58 [place]: 169 QRS: 53 QRSD: 89 T: 53 QT: 414 QTc: 393 Interpretive Statements Sinus rhythm Minimal ST elevation, anterior leads normal variant Baseline wander in lead(s) I,III,aVL Compared to ECG 09/30/2019 04:57:02 No significant changes Electronically Signed On 05-03-2020 15:03:45 CDT by Talib Blackwell [email or web address] <ELECTRONICALLY SIGNED> By: Talib Blackwell MD, [facility] 05/03/20 1503 0905 0905 Talib Blackwell MD, [facility] /EPI
--- NOTE | 2020-05-03 15:07 | EKG ---
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 Test: : 1955 Requested By: Talib Blackwell Order Number: [id number] Juliet MD: Talib Blackwell Measurements Intervals [place] Rate: 51 P: 63 [place]: 172 QRS: 62 QRSD: 88 T: 59 QT: 430 QTc: 397 Interpretive Statements Sinus rhythm Minimal ST elevation, anterior leads normal variant Compared to ECG 05/03/2020 09:05:43 No significant changes Electronically Signed On 05-03-2020 15:06:43 CDT by Talib Blackwell [email or web address] <ELECTRONICALLY SIGNED> By: Talib Blackwell MD, FACC 05/03/20 1506 1143 1143 Talib Blackwell MD, [facility] /EPI
--- NOTE | 2020-05-03 16:26 | CARD ---
[address] [address] CARDIAC CATH REPORT Name: SOLO HOYT PORTIA Room: [address] Roberto Simon#: [id number] Admission: 05/03/20 Attend Phys: Talib Blackwell MD, Discharge: Date of : 51 Report #: [id number] THIS REPORT FOR: //name// cc: Kosta Barnes Vincent R. DO ~ APPROVED REPORT Study performed: 05/03/2020 09:34:49 Patient Details Patient Status: Out-Patient Room #: The patient is a 64 year-old male Event Personnel Talib Blackwell Cuff Slitter, Kenia Nunes RN Kier Operator, Angelo Maria FABRICATOR [employer] Monitor, William Mena FABRICATOR [employer] IT[employer] Scrub Procedures Performed Left heart catheterization left ventriculography selective coronary arteriography and PCI to the ostial proximal circumflex and mid LAD; 1 JEANIE deployed in the proximal circumflex; atherotomy/atherectomy with 1 JEANIE deployed in the mid LAD Indication Unstable angina Risk Factors Obesity, Hypercholesterolemia Previous Procedures/Diagnoses Previous PCI Admission/Lab Medications/Medications given during procedure Angiomax bolus and infusion Procedure Narrative The patient was brought electively to the Cardiac Catheterization Laboratory and was prepped and draped in a sterile manner. The right femoral was infiltrated with 2% Lidocaine subcutaneous anesthesia. A 6F Sheath sheath was inserted into the RFA. Coronary angiography was performed using coronary diagnostic catheters. The right coronary system was accessed and visualized with a JR4 catheter. The left coronary system was accessed and visualized with a JL4 catheter. The left ventricle was accessed and visualized with a Pig Tail catheter. Left ventriculogram was performed in RAMIRE[place] [address] CARDIAC CATH REPORT Name: HOYTSOLO PORTIA [address]: [address] [id number] Admission: 05/03/20 Attend Phys: Talib Blackwell MD, Discharge: Date of : 51 Report #: [id number] femoral angiogram was performed . Closure device was deployed with a 6 Fr Mynx. There was no hematoma. Intraoperative Conscious Sedation Sedation start time: 937 Case end Time: 1102 Fluoro Time: 19.8 minutes Dose: DAP 443589 cGycm2 3220 mGy Contrast Type and Amount: 350 Diagnostic Cath Left Main 10% distal narrowing LAD 75% focal mid LAD in-stent restenosis Circumflex 90% ostial stenosis Right Coronary 0% narrowing of this dominant vessel Ramus 100% proximal occlusion Left Ventriculography The left ventricle is normal in size with normal contractility. The left ventricular ejection fraction is estimated to be 65%. Left ventricular wall motion abnormalities are not present. There is no mitral insufficiency. Hemodynamics The aortic pressure is 127/56 mmHg with a mean of mmHg. The left ventricular pressure is 155/3 mmHg with a mean of mmHg. The left ventricular end diastolic pressure is 16 mmHg. There was no gradient across the aortic valve upon pullback. PCI Technique Lesion Anticoagulation was achieved with Angiomax 16mL. Percutaneous coronary intervention was performed on the Prox Circumflex. The lesion stenosis prior to intervention was 90% with FELIPE 3 flow. A XBLAD 3.5 Guide Catheter was used to engage the left ostium. A Orthopaedic Synergy Interventional Guidewire was used to cross the lesion. BALLOON DILATION A Balloon catheter Mini Trek RX 2.0x8 was inserted and inflated up to 10atm for 12seconds. Additional Inflation: 6atm for 14seconds. STENT DEPLOYMENT A drug-eluting stent Senait RX sTENT 2.0X8 was inserted and inflated up to 9atm for 12seconds. Additional Inflation: 7atm for 12seconds. Additional Inflation: 6atm [place] 14[place]. [place] [address] CARDIAC CATH REPORT Name: HOYTSOLO PORTIA Room: [address]#: [id number] Admission: 05/03/20 Attend Phys: Talib Blackwell MD, Discharge: Date of : 51 Report #: [id number] Final angiography reveals 10 % stenosis with FELIPE 3 flow. PCI Technique Lesion 2 Percutaneous Coronary Intervention was performed on the MID LAD. The lesion stenosis prior to intervention was 75% with FELIPE 3 flow. Balloon Dilation A Balloon catheter Angiosculpt 2.0x6 was inserted and inflated up to 10atm for 14seconds. Additional Inflation: 12atm for 15seconds. Stent Deployment A drug-eluting stent 2.0x8 [place] was inserted and inflated up to 10atm for 12seconds. Additional Inflation: 10atm for 12seconds. Additional Inflation: 15atm for 14seconds. Final angiography reveals 0 % stenosis with FELIPE 3 flow. Conclusion 1. Significant multivessel coronary artery disease characterized by the following: A 10% distal left main coronary narrowing B 75% mid LAD in-stent restenosis C total occlusion of the ramus intermedius proximally with left to left collaterals filling the ramus in retrograde fashion D 90% ostial circumflex stenosis E 0% narrowing of the dominant right coronary artery 2. Normal left ventricular systolic function, estimated ejection fraction being 65% 3. Mild elevation of left ventricular end-diastolic pressure at rest 4. Successful PCI with deployment of drug-eluting stent at site of 90% ostial circumflex stenosis with 10% residual narrowing and FELIPE-3 flow to the distal vessel 5. Successful PCI with atherotomy/atherectomy [place] [address] CARDIAC CATH REPORT Name: SOLO HOYT Room: [address] Roberto Simon#: [id number] Admission: 05/03/20 Attend Phys: Talib Blackwell MD, Discharge: Date of : 51 Report #: [id number] mid LAD with 0% residual narrowing and FELIPE-3 flow to the distal vessel Recommendations Cardiac Risk Reduction Program Aggressive Medical Therapy Medications Administered Aspirin (any) Prasugrel Diagnostic Cath Approved by: Talib Blackwell MD Date/Time: 05/03/2020 16:23:02 <ELECTRONICALLY SIGNED> By: Talib Blackwell MD, [facility] 05/03/20 1625 1625 1625Talib Blackwell MD, [facility] /INF
--- NOTE | 2020-05-03 16:48 | NUR ---
PATIETN RESTING IN BED. OFF BEDREST AT 17:00. RIGHT GROIN SITE C/D/I WITH NO S/S OF HEMATOMA. HOURLY ROUNDING COMPLETED FOR PATIENT SAFETY.
[2020-05-04] VITALS: BP 119/53
[2020-05-04 04:00] VITALS: BP 113/61
[2020-05-04 05:13] LABS: HEMOGLOBIN 12.7 gm/dL (14.0-18.0); MCH 30.7 pg (26.0-34.0); MCHC 35.3 g/dL (28.0-37.0); MPV 6.9 fl. (7.2-11.1); RBC 4.14 mil/uL (4.50-6.00); RDW-CV 13.7 % (10.5-14.5); WBC 7.2 thou/uL (4.0-11.0)
--- NOTE | 2020-05-04 05:34 | NUR ---
ASSESSMENTS COMPLETED AT BEDSIDE, PLEASE REFER TO CHARTING FOR DETAILS. MEDICATIONS ADMINISTERED PER MAR. HOURLY ROUNDING IN PLACE FOR PT SAFETY. NO C/O PAIN OR DISCOMFORT REPORTED. CALL LIGHT WITHIN REACH.
[2020-05-04 05:41] LABS: ALBUMIN 3.1 g/dL (3.4-5.0); CALCIUM 8.1 mg/dL (8.5-10.1); CREATININE 1.1 mg/dL (0.6-1.3); POTASSIUM 4.4 mmol/L (3.5-5.1); TOTAL BILIRUBIN 0.4 mg/dL (<0.1-1.0); TOTAL PROTEIN 6.3 g/dL (6.4-8.2); TROPONIN-I LEVEL 0.07 ng/mL (<0.06)
[2020-05-04 08:00] VITALS: BP 151/67
[2020-05-04] MEDS ORDERED: NITROGLYCERIN0.4 MG SUBLING (09:02)
[2020-05-04 09:21] VITALS: BP 113/61
[2020-05-04 09:31] VITALS: BP 113/61
[2020-05-04 09:32] VITALS: BP 113/61
--- NOTE | 2020-05-04 13:06 | NUR ---
ORDER RECIEVED TO DISCHARGE PATIENT HOME TO SELF CARE WITH SPOUSE. MED REC, MEDICATION EDUCATION, STROKE EDUCATION, AND NEED FOR FOLLOW UP APPOINTMENTS WITH CARDIOLOGY, CARDIAC REHAB, AND PRIMARY CARE COVERED WITH PATIENT AND STATED UNDERSTOOD BY PATIENT. IV AND TELEMETRY PACK REMOVED. PATIENT IN NOAPPARNET SIGNS OF DISTRESS AT THE TIME PF DISCHARGE. PATIENT TAKEN VIA WHEELCHAIR BY NURSING STAFF TO AWAITING CAR WITH FAMILY PRESENT. DC TIME OF 12:00.
--- NOTE | 2020-05-04 15:28 | EKG ---
[place] [address] ELECTROCARDIOGRAM REPORT Name: SOLO HOYT Room: [address] M..#: [id number] Admission: 05/03/20 Attend Phys: Johanna Luevano Discharge: 05/04/20 Date of : 51 Date of Service: 05/04/20 0522 Report #: [id number] THIS REPORT FOR: //name// [facility] Test Date: 2020-05-04 Test Time: 05:22:02 Pat Name: SOLO HOYT Department: Room: [facility] Gender: M Telehealth Nurse: SOPHIA : 1955 Requested By: Talib Blackwell Order Number: [id number] Juliet MD: Miguelangel eHndricks Measurements Intervals [place] Rate: 52 P: 69 [place]: 158 QRS: 56 QRSD: 93 T: 51 QT: 431 QTc: 401 Interpretive Statements Sinus rhythm Compared to ECG 05/03/2020 11:43:14 ST (T wave) deviation no longer present Electronically Signed On 05-04-2020 15:28:12 CDT by Miguelangel Hendricks [email or web address] <ELECTRONICALLY SIGNED> By: Miguelangel Hendricks MD, [facility] 05/04/20 1528 1 1 Miguelangel Hendricks MD, [facility] /EPI
--- NOTE | 2020-05-10 09:18 | D ---
[address] [address] DISCHARGE SUMMARY Name: SOLO HOYT Room: [address] Roberto Simon#: [id number] Admission: 05/03/20 Attend Phys: Talib Blackwell MD, Discharge: 05/04/20 Date of : 51 Report #: [id number] THIS REPORT FOR: //name// cc: Kosta Barnes Vincent R. DO THIS REPORT FOR: //name// CC: Talib Barnes DATE OF SERVICE: 05/04/2020 FINAL DISCHARGE DIAGNOSES: 1. Unstable angina. 2. Coronary artery disease. 3. Status post percutaneous coronary intervention of the ostial circumflex and mid left anterior descending. 4. Hyperlipidemia. 5. Hypertension. 6. Exogenous obesity. PROCEDURES: 05/03/2020 -- left heart catheterization, left ventriculography, selective coronary arteriography and PCI of the proximal circumflex and mid LAD. HOSPITAL COURSE: The patient is a very pleasant and active 64-year-old male with complex coronary artery disease, status post multiple prior PCIs. He has underlying hypertension, hyperlipidemia and weight excess. Recently, he has noted recrudescence of dyspnea and chest discomfort with exertion. Nuclear stress test was performed, which revealed inducible lateral ischemia. In this context, cardiac catheterization was performed on 05/03/2020. That study revealed normal LV function, ejection fraction of 65%. There was significant coronary artery disease with 75% mid LAD in-stent restenosis and 90% ostial circumflex narrowing with total occlusion of the ramus intermedius. The right coronary artery was normal as was the left main. I performed PCI in the ostial circumflex, deploying 2.0 x 8 mm [place] drug-eluting stent with 10% residual narrowing and FELIPE 3 flow to the distal vessel. I also performed atherectomy/arthrotomy and stenting of the mid LAD in-stent restenotic area with deployment of 2.0 x 8 mm [place] drug-eluting stent with 0% residual narrowing and FELIPE 3 flow to the distal vessel. The patient [place] [address] DISCHARGE SUMMARY Name: EVELINASOLO LEE Room: [address] Roberto Simon#: [id number] Admission: 05/03/20 Attend Phys: Talib Blackwell MD, Discharge: 05/04/20 Date of : 51 Report #: [id number] LABORATORY DATA: On 05/04 revealed troponin 0.07. Sodium 139, potassium 4.4, BUN 9, creatinine 1.1, glucose 109. Hemoglobin 12.7, white blood cell count 7200 with 209,000 platelets. The patient ambulated in the hallways without difficulty and there was good hemostasis at the right femoral site and catheterization. DISCHARGE MEDICATIONS: He was discharged to home on aspirin 81 mg daily, Effient 10 mg daily, lisinopril 2.5 mg daily, metoprolol tartrate 12.5 mg b.i.d., Lipitor 20 mg daily and Lovaza 2 grams b.i.d. I will plan to see him in followup on 05/19/2020 at 11:20 at [facility]. <ELECTRONICALLY SIGNED> By: Talib Blackwell MD, [facility] 05/10/20 0918 0932 0942Talib Blackwell MD, FAC /nt
--- NOTE | 2020-05-10 09:19 | H ---
[address] [address] HISTORY AND PHYSICAL Name: SOLO HOYT Room: [address] Roberto Simon#: [id number] Admission: 05/03/20 Attend Phys: Talib Blackwell MD, Discharge: 05/04/20 Date of : 51 Report #: [id number] THIS REPORT FOR: //name// cc: Kosta Barnes Vincent R. DO ~ CC: Talib Barnes DATE OF SERVICE: 05/03/2020 The patient admitted on 05/03/2020, dictated on 05/05/2020 for cardiac catheterization on 05/03/2020. HISTORY OF PRESENT ILLNESS: The patient is a very pleasant 64-year-old male with a history of coronary artery disease, status post multiple prior percutaneous coronary interventions to the LAD, most recently in the earlier part of this year to the LAD. Of late, he has noted increased dyspnea and some chest discomfort with exertion. He has underlying hypertension and hypercholesterolemia as well as moderate weight excess. MEDICATIONS: Have included aspirin, atorvastatin, fish oil, lisinopril, metoprolol tartrate, sublingual nitroglycerin and prasugrel. PAST MEDICAL HISTORY: Remarkable for the aforementioned risk factors. SOCIAL HISTORY: The patient is . He is a prior cigarette smoker. REVIEW OF SYSTEMS: Unremarkable with the exception of the aforementioned issues related to hypertension and hypercholesterolemia. PHYSICAL EXAMINATION: GENERAL: Reveals a moderately overweight, middle-aged male. VITAL SIGNS: Blood pressure is 140/70, pulse rate is 62, and respirations are 18 per minute. NECK: Jugular venous pressure is normal. Carotids are 1-2+. CHEST: Clear. CARDIAC: Reveals normal first and second heart sounds without rubs, murmurs, clicks or gallops. ABDOMEN: Moderately obese. EXTREMITIES: Without edema with intact femoral, pedal and radial pulses. Recent nuclear stress test demonstrated inducible lateral ischemia. IMPRESSION: [address] [place] [address] HISTORY AND PHYSICAL Name: SOLO HOYT Room: [address] Roberto Simon#: [id number] Admission: 05/03/20 Attend Phys: Talib Blackwell MD, Discharge: 05/04/20 Date of : 51 Report #: [id number] 1. Coronary artery disease. 2. Status post multiple prior percutaneous coronary interventions. 3. Recently abnormal nuclear stress test with inducible lateral ischemia. 4. Dyspnea and chest discomfort of late suggesting a pattern of unstable angina. 5. Hypertension. 6. Hypercholesterolemia. RECOMMENDATIONS: Given the aforementioned clinical scenario with known coronary artery disease and recent recrudescence of symptoms compatible with angina following an unstable pattern and the abnormal nuclear stress test with inducible lateral ischemia, I would recommend proceeding with cardiac catheterization to define current coronary anatomy and outline the prospects for subsequent therapeutic modification. <ELECTRONICALLY SIGNED> By: Talib Blackwell MD, [facility] 05/10/20 0919 1643 1804Talib Blackwell MD, [facility] /nt
== END 2020-05-04 12:00 | disposition home or self-care (01) ==
LOC: M.CL 07:35 → M.TBA-CV 10:20 → M.2W 15:16
PROVIDERS: ADMIT Internal Medicine; ATTEND Internal Medicine
DX: I25.110 Atherosclerotic heart disease of native coronary artery with unstable angina pectoris (principal); E78.5 Hyperlipidemia, unspecified; I10 Essential (primary) hypertension; E66.09 Other obesity due to excess calories; E78.00 Pure hypercholesterolemia, unspecified; Z79.82 Long term (current) use of aspirin; Z79.899 Other long term (current) drug therapy; Z68.31 Body mass index [BMI] 31.0-31.9, adult; Z87.891 Personal history of nicotine dependence; Z20.828 Contact with and (suspected) exposure to other viral communicable diseases

== ENCOUNTER → 2020-05-17 | Outpatient (CLI) | payer OTHER, MEDICARE | LOC: M.ULTRA 13:30 | PROVIDERS: ATTEND Family Medicine | DX: R22.1 Localized swelling, mass and lump, neck (principal) ==

== ENCOUNTER 2020-07-16 08:45 | Observation (INO) | payer OTHER, MEDICARE ==
[~2020-07-16] VITALS: Ht 182.9 cm; Wt 117.1 kg
[2020-07-16] VITALS (11 sets, daily range): BP systolic 123–155; BP diastolic 54–78
--- NOTE | ~2020-07-16 | D ---
[address] [address] DISCHARGE SUMMARY Name: SOLO HOYT Room: [address] Roberto Simon#: [id number] Admission: 07/16/20 Attend Phys: Talib Blackwell MD, Discharge: 07/17/20 Date of : 51 Report #: [id number] THIS REPORT FOR: //name// cc: Kosta Barnes Vincent R. DO ~ CC: Talib Barnes DATE OF SERVICE: 07/17/2020 FINAL DISCHARGE DIAGNOSES: 1. Unstable angina. 2. Coronary artery disease. 3. Status post multiple percutaneous coronary interventions, most recently with atherectomy and stenting of the circumflex. 4. Hypertension. 5. Hypercholesterolemia. 6. Mild weight excess. PROCEDURES: On 07/16/2020 -- left heart catheterization, left ventriculography, selective coronary arteriography and percutaneous coronary intervention with arthrotomy/atherectomy and stenting of the ostial proximal circumflex. HOSPITAL COURSE: The patient is a very pleasant 64-year-old male with complex coronary artery disease and a very positive family history for premature coronary artery disease. He is status post multiple prior PCIs, most recently 2-1/2 months ago. Approximately 10 days to 2 weeks ago, he noted recrudescence of chest pain typical of his angina, following an unstable pattern. Prior to that, he had been hunting and doing other vigorous activities without chest pain. More recently, modest ambulation will bring on chest discomfort with some dyspnea. This was felt to represent an anginal recurrence with clinical instability. In that context, I performed cardiac catheterization on 07/16/2020 which revealed 30% mid left anterior descending narrowing with widely patent proximal and mid LAD stents. There was 80-90% ostial circumflex narrowing in a focal area, this being a nondominant vessel. There was mild disease of the dominant right coronary artery. Left ventricular function was normal. Given this data, I performed arthrotomy/atherectomy and deployment of a 2.0 x 12 mm Russell drug-eluting stent in the proximal circumflex with 0% residual narrowing and FELIPE 3 flow of the distal vessel. The patient did well post-procedurally with a minimal increase in troponin with a peak value 1.13 [place] [address] DISCHARGE SUMMARY Name: SOLO HOYT PORTIA Room: [address] Roberto Simon#: [id number] Admission: 07/16/20 Attend Phys: Talib Blackwell MD, Discharge: 07/17/20 Date of : 51 Report #: [id number] He had no chest discomfort and EKGs sequentially revealed no acute ischemic changes. The patient ambulated in the hallways without difficulty. LABORATORY DATA: On 07/17/2020; revealed sodium 141, potassium 4.2, BUN 14, creatinine 0.8, glucose 91. Hemoglobin 12.5, white blood cell count 6900 with 214,000 platelets. Troponin was elevated minimally at 1.13. Thus, the patient was clinically stable and ambulated without difficulty. There was good hemostasis at the right femoral site of catheterization. DISCHARGE MEDICATIONS: He was discharged to home on the following medications: Atorvastatin 20 mg at bedtime, aspirin 81 mg daily, lisinopril 2.5 mg daily, metoprolol tartrate 12.5 mg b.i.d., prasugrel or Effient 10 mg daily, p.r.n. sublingual nitroglycerin, and Lovaza 1000 mg b.i.d. I will plan to see the patient in 3-4 weeks in the office for continuing care ad he is to call if there are interim difficulties. Therefore, the patient is discharged to home in stable condition on the aforementioned medications with followup as iterated above. By: 1145 [id number] Blackwell MD, [facility] /nt
[~2020-07-16 08:45] MED LIST changes: +LOVAZA1000 MG PO
[2020-07-16 10:55] LABS: MCH 30.7 pg (26.0-34.0); MCHC 34.2 g/dL (28.0-37.0); RBC 4.55 mil/uL (4.50-6.00); RDW-CV 14.4 % (10.5-14.5)
[2020-07-16 11:06] LABS: ANION GAP 7 mmol/L (7-16); BUN 12 mg/dL (7-18); CALCIUM 8.7 mg/dL (8.5-10.1); CHLORIDE 106 mmol/L (98-107); CO2 27 mmol/L (21-32); CREATININE 0.9 mg/dL (0.6-1.3); GLUCOSE 93 mg/dL (70-99); POTASSIUM 4.3 mmol/L (3.5-5.1); SODIUM 140 mmol/L (136-145)
[2020-07-16 11:08] LABS: APTT 24.5 Seconds (25.0-31.3); PROTIME 10.3 Seconds (9.20-11.50)
[2020-07-16 11:10] LABS: ALBUMIN 3.5 g/dL (3.4-5.0); ALKALINE PHOSPHATASE 73 U/L (46-116); CHOLESTEROL 157 mg/dL (<200); HDL CHOLESTEROL 50 mg/dL (>40); LDL CHOLESTEROL 81 mg/dL (<100); SGOT 23 U/L (15-37); SGPT 60 U/L (30-65); TC:HDL 3.1 Ratio (Not establshd); TOTAL BILIRUBIN 0.6 mg/dL (<0.1-1.0); TOTAL PROTEIN 7.2 g/dL (6.4-8.2); TRIGLYCERIDE 130 mg/dL (<150); VLDL 26 mg/dL (<40)
[2020-07-16 11:12] LABS: SERUM ASSESSMENT Clear
--- NOTE | 2020-07-16 18:10 | EKG ---
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: : 1955 Requested By: Talib Blackwell Order Number: [id number] Juliet MD: Miguelangel Hendricks Measurements Intervals [place] Rate: 49 P: -31 [place]: 158 QRS: 53 QRSD: 92 T: 43 QT: 437 QTc: 395 Interpretive Statements Sinus bradycardia Compared to ECG 05/04/2020 05:22:02 Sinus rhythm no longer present Electronically Signed On 07-16-2020 18:10:25 GLOBAL CATEGORY MANAGER by Miguelangel Hendricks [email or web address] <ELECTRONICALLY SIGNED> By: Miguelangel Hendricks MD, [facility] 07/16/20 1810 1108 1108 Miguelangel Hendricks MD, [facility] /EPI
--- NOTE | 2020-07-16 18:11 | EKG ---
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: : 1955 Requested By: Talib Blackwell Order Number: [id number] Juliet MD: Miguelangel Hendricks Measurements Intervals [place] Rate: 48 P: 59 [place]: 171 QRS: 56 QRSD: 89 T: 52 QT: 442 QTc: 395 Interpretive Statements Sinus bradycardia Compared to ECG 07/16/2020 11:08:43 No significant changes Electronically Signed On 07-16-2020 18:11:27 ELECTRICAL POWER STATION TECHNICIAN by Miguelangel Hendricks [email or web address] <ELECTRONICALLY SIGNED> By: Miguelangel Hendricks MD, [facility] 07/16/20 1811 1505 1505 Miguelangel Hendricks MD, [facility] /EPI
[2020-07-17 00:11] VITALS: BP 117/65
[2020-07-17 05:22] VITALS: BP 112/68
[2020-07-17 05:37] LABS: HEMATOCRIT 37.1 % (42.0-52.0); HEMOGLOBIN 12.5 gm/dL (14.0-18.0); MCH 30.2 pg (26.0-34.0); MCHC 33.7 g/dL (28.0-37.0); MCV 89.6 fL (80.0-100.0); MPV 7.1 fl. (7.2-11.1); RBC 4.14 mil/uL (4.50-6.00); RDW-CV 14.7 % (10.5-14.5); WBC 6.9 thou/uL (4.0-11.0)
[2020-07-17 06:29] LABS: ALBUMIN 2.9 g/dL (3.4-5.0); CALCIUM 7.7 mg/dL (8.5-10.1); CREATININE 0.8 mg/dL (0.6-1.3); POTASSIUM 4.2 mmol/L (3.5-5.1); TOTAL BILIRUBIN 0.4 mg/dL (<0.1-1.0); TOTAL PROTEIN 6.2 g/dL (6.4-8.2)
[2020-07-17 06:32] LABS: TROPONIN-I LEVEL 0.96 ng/mL (<0.06)
[2020-07-17 07:30] VITALS: BP 197/88
[2020-07-17 07:41] LABS: APTT 24.5 Seconds (25.0-31.3); PROTIME 10.3 Seconds (9.20-11.50)
--- NOTE | 2020-07-17 11:03 | NUR ---
CM SPOKE TO THE PT TO DISCUSS CM ASSESSMENT. PT A&O, AND INDEPENDENT WITH ADL'S. PT RESIDES AT HOME WITH SPOUSE. PT USES 0 DME. PT HAS 0 HX OF HH OR SNF. CM WILL REMAIN AVAILABLE TO ASSIST AND FOLLOW NEEDED.
[2020-07-17 12:00] VITALS: BP 197/88
--- NOTE | 2020-07-17 13:12 | CARD ---
[address] [address] CARDIAC CATH REPORT Name: SOLO HOYT Room: [address] Roberto Simon#: [id number] Admission: 07/16/20 Attend Phys: Talib Blackwell MD, Discharge: 07/17/20 Date of : 51 Report #: [id number] THIS REPORT FOR: //name// cc: Kosta Barnes Vincent R. DO ~ APPROVED REPORT Study performed: 07/16/2020 12:08:30 Patient Details Patient Status: Out-Patient Room #: The patient is a 64 year-old male Event Personnel Talib Blackwell Technical Service Specialist, Serenity Carpenter RN Director Of Women'S Services, William Mena PROPELLER LAYOUT WORKER Scrub, Barbie Teran RTR Monitor, Angelo Maria PROPELLER LAYOUT WORKER Monitor Procedures Performed Art Access - R femoral artery, Left Heart Cath w/or w/o Coronaries LHC, JEANIE w/Atherectomy Single CIRC DESATH, Hemostasis w/ Angioseal Indication Unstable angina Risk Factors Family History, Hypercholesterolemia Previous Procedures/Diagnoses Previous PCI Admission/Lab Medications/Medications given during procedure Angiomax IV 15 ml, Angiomax Drip IV 24.93 ml per hr, Effient PO 30 mg, Aspirin PO 81 mg Procedure Narrative The patient was brought electively to the Cardiac Catheterization Laboratory and was prepped and draped in a sterile manner. The right femoral was infiltrated with 1% Lidocaine subcutaneous anesthesia. A 6F [place] sheath was inserted into the right femoral artery. Coronary angiography was performed using coronary diagnostic catheters. The right coronary system was accessed and visualized with a 6F JR4 catheter. The left coronary system was accessed and visualized with a 6F JL4 catheter. The [place] [address] CARDIAC CATH REPORT Name: HOYTSOLO PORTIA Room: [address]#: [id number] Admission: 07/16/20 Attend Phys: Talib Blackwell MD, Discharge: 07/17/20 Date of : 51 Report #: [id number] and visualized with a 6F Straight Pigtail catheter. Left ventricular/Aortic Valve gradient assessed via catheter pullback. Left ventriculogram was performed in RAMIREZ projection. Pre-demployment femoral angiogram was performed . Closure device was deployed with a 6 Fr Angioseal STS. The patient tolerated the procedure well and there were no complications associated with the procedure. There was no hematoma. Intraoperative Conscious Sedation Sedation start time: 12:35 Case end Time: 13:37 Fentanyl 50 mcg Versed 2 mg Fluoro Time: 17.1 minutes Dose: DAP 377144 cGycm2 3369 mGy Contrast Type and Amount: Visipaque 260 ml Diagnostic Cath Left Main 0% narrowing LAD 10% ostial LAD narrowing with widely patent proximalmid LAD stents. There was 30% mid vessel narrowing Circumflex Small nondominant vessel with 90% ostial stenosis Right Coronary Large dominant vessel with tortuosity but 0% narrowing Ramus 100% occlusion proximally with left to left collaterals filling the distal ramus Left Ventriculography The left ventricle is normal in size with normal contractility. The left ventricular ejection fraction is estimated to be 60%. Left ventricular wall motion abnormalities are not present. There is no mitral insufficiency. Hemodynamics The aortic pressure is 140/67 mmHg with a mean of 94 mmHg. The left ventricular pressure is 140/2 mmHg with a mean of mmHg. The left ventricular end diastolic pressure is 19 mmHg. PCI Technique Lesion Anticoagulation was achieved with Angiomax. Patient was preloaded with Angiomax IV 15 ml. Percutaneous coronary intervention was performed on the proximal circumflex artery segment. The lesion stenosis prior to intervention was 90% with FELIPE 3 flow. A 6F XB LAD 3.5 Guide Catheter was used to engage the lm ostium. A BMW 190cm Interventional Guidewire was [place] [address] CARDIAC CATH REPORT Name: EVELINASOLO LEE Room: [address] Roberto Simon#: [id number] Admission: 07/16/20 Attend Phys: Talib Blackwell MD, Discharge: 07/17/20 Date of : 51 Report #: [id number] BALLOON DILATION A Balloon catheter Mini Trek RX 2.0 X 8 was inserted and inflated up to 8.00atm for 8seconds. Additional Inflation: 14.00atm for 20seconds. Additional Inflation: 16.00atm for 11seconds. A ProwaterFlex 180cm Interventional Guidewire was advanced down LAD artery. An AngioSculpt PTCA athrectomy scoring balloon 2.0 x 6mm was inserted and inflated up to 12 monica for 12 seconds; 14 monica for 11 seconds; 15 monica for 13 seconds. STENT DEPLOYMENT A drug-eluting stent [place] RX Stent 2.0X12mm was inserted and inflated up to 12.00atm for 11seconds. Additional Inflation: 15.00atm for 10seconds. POST STENT DEPLOYMENT BALLOON DILATION A Balloon catheter NC Euphora 2.25x8 was inserted and inflated up to 14.00atm for 8seconds. Additional Inflation: 15.00atm for 8seconds. Additional Inflation: 16.00atm for 6seconds. Final angiography reveals 0 % stenosis with FELIPE 3 flow. Conclusion 1. Significant coronary artery disease characterized by the following: A 10% ostial LAD narrowing with widely patent proximalmid LAD stents and 30% mid vessel narrowing B 90% ostial stenosis of a small nondominant circumflex C total occlusion of the ramus intermedius at its origin with left to left collaterals filling the distal ramus intermedius D dominant right coronary artery with tortuosity but no significant narrowing. 2. Normal left ventricular systolic function, estimated ejection fraction being 60% 3. Modest elevation of left ventricular end-diastolic pressure at rest 4. Successful atherotomy/atherectomy and stenting of the ostial proximal circumflex with 0% residual narrowing and FELIPE-3 flow to the distal vessel [address] [address] CARDIAC CATH REPORT Name: SOLO HOYT Room: [address] Roberto M.R.#: [id number] Admission: 07/16/20 Attend Phys: Talib Blackwell MD, Discharge: 07/17/20 Date of : 51 Report #: [id number] Recommendations Cardiac Rehabilitation Referral Cardiac Risk Reduction Program Aggressive Medical Therapy Medications Administered Aspirin (any) Prasugrel Diagnostic Cath Approved by: Talib Blackwell MD Date/Time: 07/17/2020 13:09:56 <ELECTRONICALLY SIGNED> By: Talib Blackwell MD, FACC 07/17/20 1312 11 131Talib Blackwell MD, FACC /INF
--- NOTE | 2020-07-18 12:43 | EKG ---
[place] [address] ELECTROCARDIOGRAM REPORT Name: SOLO HOYT Room: [address] M.R.#: [id number] Admission: 07/16/20 Attend Phys: Johanna Luevano Discharge: 07/17/20 Date of : 51 Date of Service: 07/17/20 0539 Report #: [id number] THIS REPORT FOR: //name// [facility] Test Date: 2020-07-17 Test Time: 05:39:13 Pat Name: SOLO HOYT Department: Room: [facility] Gender: M Straight Edger: 123 : 1955 Requested By: Talib Blackwell Order Number: [id number] Juliet MD: Miguelangel Hendricks Measurements Intervals [place] Rate: 44 P: 61 [place]: 172 QRS: 51 QRSD: 89 T: 44 QT: 465 QTc: 398 Interpretive Statements Sinus bradycardia Minimal ST elevation, anterior leads Compared to ECG 07/16/2020 15:05:00 ST (T wave) deviation now present Electronically Signed On 07-18-2020 12:42:59 BOLT CUTTER by Miguelangel Hendricks [email or web address] <ELECTRONICALLY SIGNED> By: Miguelangel Hendricks MD, FACC 07/18/20 1242 0539 0539 Miguelangel Hendricks MD, [facility] /EPI
--- NOTE | 2020-07-18 12:43 | EKG ---
[place] [address] ELECTROCARDIOGRAM REPORT Name: SOLO HOYT Room: [address] M.R.#: [id number] Admission: 07/16/20 Attend Phys: Johanna Luevano Discharge: 07/17/20 Date of : 51 Date of Service: 07/16/202112 Report #: [id number] THIS REPORT FOR: //name// [facility] Test Date: 2020-07-16 Test Time: 21:13:16 Pat Name: SOLO HOYT Department: Room: [address] Gender: M Recycling Coordinator: 123 : 1955 Requested By: Talib Blackwell Order Number: [id number] Juliet MD: Miguelangel Hendricks Measurements Intervals [place] Rate: 55 P: 63 [place]: 170 QRS: 44 QRSD: 108 T: 51 QT: 431 QTc: 413 Interpretive Statements Sinus rhythm Compared to ECG 07/16/2020 15:05:00 Sinus bradycardia no longer present Electronically Signed On 07-18-2020 12:42:57 LANDSCAPE DRAFTER by Miguelangel Hendricks [email or web address] <ELECTRONICALLY SIGNED> By: Miguelangel Hendricks MD, FACC 07/18/20 1242 12 12 Miguelangel Hendricks MD, FACC /EPI
== END 2020-07-17 12:30 | disposition home or self-care (01) ==
LOC: M.CL 08:45 → M.TBA-CV 13:49 → M.2W 15:19
PROVIDERS: Internal Medicine Cardiovascular Disease; ADMIT Internal Medicine; ATTEND Internal Medicine
DX: I25.110 Atherosclerotic heart disease of native coronary artery with unstable angina pectoris (principal); E78.00 Pure hypercholesterolemia, unspecified; I10 Essential (primary) hypertension; R63.5 Abnormal weight gain; Z68.35 Body mass index [BMI] 35.0-35.9, adult; Z79.82 Long term (current) use of aspirin; Z79.899 Other long term (current) drug therapy; Z20.828 Contact with and (suspected) exposure to other viral communicable diseases

== ENCOUNTER 2021-07-12 10:08 | Observation (INO) | payer OTHER, MEDICARE ==
[2021-07-12] VITALS (11 sets, daily range): BP systolic 125–170; BP diastolic 57–81
[~2021-07-12] VITALS: Ht 182.9 cm; Wt 108.9 kg
[2021-07-12 10:54] LABS: HEMATOCRIT 41.1 % (42.0-52.0); HEMOGLOBIN 14.5 gm/dL (14.0-18.0); MCH 30.9 pg (26.0-34.0); MCHC 35.4 g/dL (28.0-37.0); MCV 87.3 fL (80.0-100.0); MPV 7.1 fl. (7.2-11.1); RBC 4.7 mil/uL (4.50-6.00); RDW-CV 13.7 % (10.5-14.5); WBC 7.3 thou/uL (4.0-11.0)
[2021-07-12 11:09] LABS: APTT 24.7 Seconds (25.0-31.3); INR 0.9; PROTIME 9.6 Seconds (9.20-11.50)
[2021-07-12 12:19] LABS: ALBUMIN 3.5 g/dL (3.4-5.0); ALKALINE PHOSPHATASE 92 U/L (46-116); ANION GAP 10 mmol/L (7-16); BUN 15 mg/dL (7-18); CALCIUM 8.5 mg/dL (8.5-10.1); CHLORIDE 105 mmol/L (98-107); CHOLESTEROL 187 mg/dL (<200); CO2 25 mmol/L (21-32); GLUCOSE 94 mg/dL (70-99); HDL CHOLESTEROL 36 mg/dL (>40); POTASSIUM 4.3 mmol/L (3.5-5.1); SGOT 48 U/L (15-37); SGPT 80 U/L (30-65); SODIUM 140 mmol/L (136-145); TC:HDL 5.2 Ratio (Not establshd); TOTAL BILIRUBIN 0.3 mg/dL (<0.1-1.0); TOTAL PROTEIN 7.2 g/dL (6.4-8.2); TRIGLYCERIDE 862 mg/dL (<150); VLDL 172 mg/dL (<40)
[2021-07-12 12:20] LABS: SERUM ASSESSMENT Clear
--- NOTE | 2021-07-12 16:33 | CARD ---
[address] [address] CARDIAC CATH REPORT Name: SOLO HOYT Room: [address] Roberto Simon#: [id number] Admission: 07/12/21 Attend Phys: Talib Blackwell MD, Discharge: Date of : 51 Report #: [id number] THIS REPORT FOR: cc: Kosta Barnes Vincent R. DO Holkins,Talib Castelan MD [facility] ~ APPROVED REPORT Study performed: 07/12/2021 10:51:10 Patient Details Patient Status: Out-Patient Room #: The patient is a 65 year-old mmale Event Personnel Dr. Hendricks, Dr. Blackwell, Monica López RN, Ricky Francisco RTR, Amalia Godoy RTR Procedures Performed Coronary Angiography, Atherectomy and Stent of proximal LAD, mid LAD stenting, first diagonal stenting, IFR assessment of both LAD and first diagonal Indication Unstable angina , Positive stress test Risk Factors Family History, Hypercholesterolemia Previous Procedures/Diagnoses Previous PCI Procedure Narrative The patient was brought electively to the Cardiac Catheterization Laboratory and was prepped and draped in a sterile manner. The right femoral was infiltrated with 2% Lidocaine subcutaneous anesthesia. IV conscious sedation was used throughout procedure with appropriate monitoring and was performed in the presence of a registered nurse who was an independent trained observer other than the physician performing the procedure. A 6 Fr Ultimum Sheath sheath was inserted into the right femoral artery. Coronary angiography was performed using coronary diagnostic catheters. The right coronary system was accessed and visualized with a Diagnostic 6Fr JR4 catheter. The left coronary system was accessed and visualized with a Diagnostic 6Fr JL4 [place] [id number] CARDIAC CATH REPORT Name: EVELINASOLO LEE Room: [address] [place]#: [id number] Admission: 07/12/21 Attend Phys: Talib Blackwell MD, Discharge: Date of : 51 Report #: [id number] catheter. Pre-demployment femoral angiogram was performed . Closure device was deployed with a 6 Fr Angioseal. The patient tolerated the procedure well and there were no complications associated with the procedure. There was no hematoma. Intraoperative Conscious Sedation Sedation start time: 1152 Case end Time: 1301 Fentanyl 50.0 mcg Versed 3.0 mg Fluoro Time: 22.2 minutes Dose: DAP 355776 cGycm2 2744 mGy Contrast Type and Amount: Visipaque 340 ml Coronary Angiography The patient's coronary anatomy is right dominant. Diagnostic Cath Left Main 10% distal narrowing LAD 70% proximal and 75% mid LAD narrowing followed by tandem 50 and 60% distal LAD stenosis Circumflex 20% ostial narrowing Right Coronary Large dominant vessel with tortuosity surrounding the acute margin 30% distal narrowing Left Ventriculography Left Ventriculography was not performed. IVUS Fractional Flow [place] was performed on the IFR not FFR was performed on the first diagonal and LAD respectively with minimum values of 0.88 and 0.89 respectively vessel. Hemodynamics The aortic pressure is 177/75 mmHg with a mean of 118 mmHg. PCI Technique Lesion Anticoagulation was achieved with Heparin 6000 units; Angiomax bolus and infusion. Percutaneous coronary intervention was performed on the first diagonal branch segment. The lesion stenosis prior to intervention was 75% with FELIPE 3 flow. A 6 Fr EBU 3.5 Guide Catheter was used to engage the Left ostium. A BMW 190 cm Interventional Guidewire was used to cross the [place] [id number] CARDIAC CATH REPORT Name: EVELINASOLO PORTIA Room: [address] Luis.#: [id number] Admission: 07/12/21 Attend Phys: Talib Blackwell MD, Discharge: Date of : 51 Report #: [id number] A Balloon catheter 2.0 x 8 NC Trek was inserted and inflated up to 18atm for 15seconds. Additional Inflation: 22atm for 7seconds. Additional Inflation: 24atm for 14seconds. IFR assessment results were 0. 8 8 STENT DEPLOYMENT A drug-eluting stent 2.0 x 12 mm Russell was inserted and inflated up to 14atm for 10seconds. Final angiography reveals 0 % stenosis with FELIPE 3 flow. PCI Technique Lesion The lesion stenosis prior to intervention was IFR not FFR was performed on the first diagonal and LAD respectively with minimum values of 0.88 and 0.89 respectively% with FELIPE flow. PCI Technique Lesion 2 Percutaneous Coronary Intervention was performed on the proximal left anterior descending artery segment. Percutaneous coronary intervention was performed on the Proximal LAD. The lesion stenosis prior to intervention was 75% with FELIPE 3 flow. Balloon Dilation A Balloon catheter 2.75 x 8 was inserted and inflated up to 16atm for 20seconds. Additional Inflation: 18atm for 8seconds. Additional Inflation: 22atm for 13seconds. 3.0 x 10 mm angiosculpt balloon was inflated to 10,12, and 14 monica respectively in the proximal LAD Stent Deployment A drug-eluting stent 3.0 x 12 mm Russell was inserted and inflated up to 15atm for 10seconds. Final angiography reveals 10 % stenosis with FELIPE 3 flow. STENT DEPLOYMENT A stent was inserted and inflated up to 12atm for 7seconds. Additional Inflation: monica for 7seconds. PCI Technique Lesion 3 Percutaneous Coronary Intervention was performed on the Mid LAD. Percutaneous coronary intervention was performed on the Mid LAD. The lesion stenosis prior to intervention was 70% with FELIPE 3 [place] [id number] CARDIAC CATH REPORT Name: SOLO HOYT PORTIA Room: [address] Roberto Simon#: [id number] Admission: 07/12/21 Attend Phys: Talib Blackwell MD, Discharge: Date of : 51 Report #: [id number] A 2.5 x 12 stent [place] was inserted and inflated up to 14atm for 7seconds. Additional Inflation: 15atm for 10seconds. Final angiography reveals 0 % stenosis with FELIPE 3 flow. Conclusion 1. Significant coronary artery disease characterized by the following: A 10% distal left main coronary narrowing B widely patent ostial proximal LAD stents with 75% narrowing at the takeoff of the first septal information management manager with 70% mid LAD narrowing and tandem 50 and 60% distal LAD stenoses C 20% narrowing at the ostium of the nondominant circumflex D large dominant right coronary artery with tortuosity surrounding the acute margin 30% distal narrowing 2. Moderate systemic systolic hypertension November 3. IFR was calculated in the first diagonal and the LAD with minimal values of 0.88 and 0.89 respectively, suggesting hemodynamic significant obstruction in both territories. 3. Successful PCI with deployment of a drug-eluting stent in the first diagonal with 0% residual narrowing and FELIPE-3 flow the distal vessel 4. Successful PCI with angioplasty atherotomy/atherectomy and stenting of the proximal LAD and angioplasty and stenting of the mid LAD with 10 and 0% residual narrowings and FELIPE-3 flow to the distal vessel Recommendations Cardiac Risk Reduction Program Aggressive Medical Therapy Medications [place] [id number] CARDIAC CATH REPORT Name: SOLO HOYT Room: [address] Roberto Simon#: [id number] Admission: 07/12/21 Attend Phys: Talib Blackwell MD, Discharge: Date of : 51 Report #: [id number] Diagnostic Cath Approved by: Miguelangel Hendricks MD Date/Time: 07/12/2021 16:17:42 <ELECTRONICALLY SIGNED> By: Talib Blackwell MD, FACC 07/12/21 1633 32 [email or web address] alberto Blackwell MD, FACC /INF
[2021-07-13 00:17] VITALS: BP 124/60
[2021-07-13 04:18] LABS: HEMATOCRIT 38.3 % (42.0-52.0); HEMOGLOBIN 13.1 gm/dL (14.0-18.0); MCH 29.9 pg (26.0-34.0); MCHC 34.1 g/dL (28.0-37.0); MCV 87.6 fL (80.0-100.0); MPV 7.2 fl. (7.2-11.1); RBC 4.37 mil/uL (4.50-6.00); RDW-CV 13.7 % (10.5-14.5); WBC 8.7 thou/uL (4.0-11.0)
[2021-07-13 04:33] LABS: CALCIUM 7.9 mg/dL (8.5-10.1); CREATININE 0.9 mg/dL (0.6-1.3); POTASSIUM 4.3 mmol/L (3.5-5.1); TOTAL BILIRUBIN 0.5 mg/dL (<0.1-1.0); TOTAL PROTEIN 6.3 g/dL (6.4-8.2)
[2021-07-13 05:06] VITALS: BP 135/82
[2021-07-13 08:00] VITALS: BP 155/55
[2021-07-13] MEDS ORDERED: LIPITOR40 MG PO (08:31)
[2021-07-13] MEDS ORDERED: VASCEPA1 GM PO (08:33)
[2021-07-13 10:57] VITALS: BP 155/55
--- NOTE | 2021-07-13 14:13 | EKG ---
[place] [address] ELECTROCARDIOGRAM REPORT Name: SLOO HOYT Room: [address] M.R.#: [id number] Admission: 07/12/21 Attend Phys: Johanna Luevano Discharge: 07/13/21 Date of : 51 Date of Service: 07/12/21 1115 Report #: [id number] THIS REPORT FOR: //name// [facility] Test Date: 2021-07-12 Test Time: 11:15:57 Pat Name: SOLO HOYT Department: Room: [facility] Gender: M Electrotype Molder: TM : 1955 Requested By: Talib Blackwell Order Number: [id number] Juliet MD: Talib Blackwell Measurements Intervals [place] Rate: 51 P: 58 [place]: 167 QRS: 52 QRSD: 89 T: 37 QT: 436 QTc: 402 Interpretive Statements Sinus rhythm Compared to ECG 08/03/2020 08:41:57 Sinus bradycardia no longer present Electronically Signed On 07-13-2021 14:13:40 WILDERNESS GUIDE by Talib Blackwell [email or web address] <ELECTRONICALLY SIGNED> By: Talib Blackwell MD, [facility] 07/13/21 1413 1115 1115 Talib Blackwell MD, [facility] /EPI
--- NOTE | 2021-07-13 14:16 | EKG ---
[place] [address] ELECTROCARDIOGRAM REPORT Name: EVELINASOLO LEE Room: [address] M.R.#: [id number] Admission: 07/12/21 Attend Phys: Johanna Luevano Discharge: 07/13/21 Date of : 51 Date of Service: 07/12/21 1406 Report #: [id number] THIS REPORT FOR: //name// [facility] Test Date: 2021-07-12 Test Time: 14:06:29 Pat Name: SOLO HOYT Department: Room: [facility] Gender: M Filterer: TM : 1955 Requested By: Miguelangel Hendricks Order Number: [id number] Juliet MD: Talib Blackwell Measurements Intervals [place] Rate: 53 P: 29 [place]: 162 QRS: 59 QRSD: 88 T: 24 QT: 440 QTc: 414 Interpretive Statements Sinus rhythm Minimal ST elevation, anterior leads; normal variant Compared to ECG 07/12/2021 11:15:57 ST (T wave) deviation persists Electronically Signed On 07-13-2021 14:16:03 HVAC MAINTENANCE TECHNICIAN by Talib Blackwell [email or web address] <ELECTRONICALLY SIGNED> By: Talib Blackwell MD, [facility] 07/13/21 1416 05 05 Talib Blackwell MD, [facility] /EPI
--- NOTE | 2021-07-13 14:23 | EKG ---
[place] [address] ELECTROCARDIOGRAM REPORT Name: HOYTSOLO Room: [address] M.R.#: [id number] Admission: 07/12/21 Attend Phys: Johanna Luevano Discharge: 07/13/21 Date of : 51 Date of Service: 07/13/21 0957 Report #: [id number] THIS REPORT FOR: //name// [facility] Test Date: 2021-07-13 Test Time: 09:57:35 Pat Name: SOLO HOYT Department: Room: [facility] Gender: M Tag Maker: KD : 1955 Requested By: Miguelangel Hendricks Order Number: [id number] Reading MD: Talib Blackwell Measurements Intervals [place] Rate: 57 P: 18 [place]: 156 QRS: 64 QRSD: 93 T: 22 QT: 423 QTc: 412 Interpretive Statements Sinus rhythm Minimal ST elevation, anterior leads; normal variant Compared to ECG 07/12/2021 14:06:29 No significant changes Electronically Signed On 07-13-2021 14:23:27 FUEL OPERATOR by Talib Blackwell [email or web address] <ELECTRONICALLY SIGNED> By: Talib Blackwell MD, [facility] 07/13/21 1423 0957 0957 Talib Blackwell MD, [facility] /EPI
--- NOTE | 2021-07-13 15:48 | D ---
[address] [address] DISCHARGE SUMMARY Name: SOLO HOYT Room: [address] Roberto Simon#: [id number] Admission: 07/12/21 Attend Phys: Talib Blackwell MD, Discharge: 07/13/21 Date of : 51 Report #: [id number] THIS REPORT FOR: cc: Kosta Barnes,Kosta Cifuentes,Talib Castelan MD [facility] ~ DATE OF DISCHARGE: 07/13/2021 FINAL DISCHARGE DIAGNOSES: 1. Unstable angina. 2. Abnormal stress echocardiogram. 3. Coronary artery disease. 4. Hypertension. 5. Hyperlipidemia. 6. Modest obesity. PROCEDURES: 07/12/2021 -- left heart catheterization, selective coronary arteriography and percutaneous coronary intervention to the first diagonal and two sites of the LAD. HOSPITAL COURSE: The patient is a very pleasant 65-year-old male with complex coronary artery disease, status post multiple prior PCIs. Of late, he has noted increased episodes of chest discomfort compatible with angina, brought on both with activity and occasionally at rest. He has been able to exercise, but notes some chest discomfort with that. Stress echocardiogram was performed, which revealed distal septal and anteroapical hypokinesis with exercise. Thus, the study suggested inducible ischemia. He has known hyperlipidemia and modest obesity. In this context, I performed cardiac catheterization on 07/12/2021 which revealed significant LAD and diagonal stenoses. There was 70% proximal and 75% mid LAD stenosis with 75% first diagonal stenosis. IFR was performed on the LAD with a minimum value of 0.89 and on the first diagonal a minimum value of 0.88, suggesting hemodynamic significance and ischemia in both territories. Given this data, I performed angioplasty with stenting of the first diagonal, deploying a 2.0 x 12 mm Arkoma drug-eluting stent with 0% residual narrowing. I performed angioplasty with stenting of the mid LAD with 0% residual narrowing. I performed angioplasty arthrotomy/atherectomy and stenting of the proximal LAD with a 3.0 x 12 mm Arkoma deployed there; a 2.5 x 12 mm Russell was deployed in the mid LAD. There was 10 and 0% residual narrowing at the LAD sites and 0% residual narrowing in the diagonal site with FELIPE 3 flow to [place] [address] DISCHARGE SUMMARY Name: SOLO HOYT Room: [address] Roberto Simon#: [id number] Admission: 07/12/21 Attend Phys: Talib Blackwell MD, Discharge: 07/13/21 Date of : 51 Report #: [id number] The patient did well post-procedurally and ambulated in the hallways without difficulty. There was good hemostasis at the right femoral site of catheterization. Laboratory data revealed a sodium 140, potassium 4.3, BUN 12, creatinine 0.9. Hemoglobin 13.1, white blood cell count 8700. Cholesterol 187, triglycerides 862, HDL 36, incalculable LDL. Given this data, he was discharged to home on prior medicines with the addition of Vascepa 2 grams b.i.d. in light of the marked hypertriglyceridemia. The confluent cardiac regimen will include aspirin 81 mg daily, lisinopril 2.5 mg daily, metoprolol tartrate 12.5 mg b.i.d., prasugrel or Effient 10 mg daily with a 30 mg periprocedural dose having been given, p.r.n. sublingual nitroglycerin 0.4 mg and Lovaza 2 grams p.o. b.i.d. The patient is scheduled to return to see my nurse practitioner in mid July and myself in mid August. Therefore, the patient is discharged home in stable condition on the aforementioned medications with followup as iterated above. <ELECTRONICALLY SIGNED> By: Talib Blackwell MD, [facility] 07/13/21 [id number] Blackwell MD, FACC /nt
== END 2021-07-13 12:15 | disposition home or self-care (01) ==
LOC: M.CL 10:08 → M.TBA-CV 13:13 → M.2W 13:13 → M.TBA-CV 13:13 → M.2W 19:25
PROVIDERS: Internal Medicine Cardiovascular Disease; ADMIT Internal Medicine; ATTEND Internal Medicine
DX: I25.110 Atherosclerotic heart disease of native coronary artery with unstable angina pectoris (principal); Z20.822 Contact with and (suspected) exposure to COVID-19; E78.5 Hyperlipidemia, unspecified; I10 Essential (primary) hypertension; E66.01 Morbid (severe) obesity due to excess calories; I25.2 Old myocardial infarction; Z95.5 Presence of coronary angioplasty implant and graft; Z79.82 Long term (current) use of aspirin; Z79.899 Other long term (current) drug therapy